=== PATIENT | female | born 1990 | race Caucasian/White ===

== ENCOUNTER 2023-03-09 08:35 | Emergency (ER) | payer MEDICARE, MEDICAID ==
[~2023-03-09] VITALS: Ht 165.1 cm; Wt 70.9 kg
[2023-03-09 08:45] VITALS: BP 125/78
[2023-03-09] MEDS ORDERED: HYDROcodone/acetaminophen 5mg/325mg tablet PO ONE (12:00)
--- NOTE | 2023-03-09 13:53 | NUR ---
TELERAD CALLED REGARDING XRAY REPORT.
[2023-03-09] MEDS ORDERED: HYDR-3965 PO ×2 (14:35→14:37)
== END 2023-03-09 14:53 | disposition home or self-care (01) ==
LOC: ER 08:36
DX: R07.89 Other chest pain (principal); W19.XXXA Unspecified fall, initial encounter; Y93.89 Activity, other specified; Y92.89 Other specified places as the place of occurrence of the external cause
CPT/HCPCS: 71101; 99283

== ENCOUNTER 2023-04-10 14:19 | Emergency (ER) | payer MEDICARE, MEDICAID ==
[~2023-04-10] VITALS: Ht 165.1 cm; Wt 73.6 kg
[~2023-04-10 14:19] MED LIST: HYDR-3965 PO
[2023-04-10 14:56] LABS: BASOPHILS # (AUTO) 0.1 X10'3 (0-0.2); BASOPHILS % (AUTO) 0.7 % (0-1); EOSINOPHILS # (AUTO) 0.2 X10'3 (0-0.9); HEMATOCRIT 35.8 % (35.0-45.0); HEMOGLOBIN 12.1 g/dl (12.0-16.0); LYMPHOCYTES # (AUTO) 2.7 X10'3 (1.1-4.8); LYMPHOCYTES % (AUTO) 27.9 % (21-51); MEAN CORPUSCULAR HEMOGLOBIN 33.7 PG (27.0-31.0); MEAN CORPUSCULAR HGB CONC 33.8 g/dL (33.0-36.5); MEAN CORPUSCULAR VOLUME 99.7 FL (78-98); MEAN PLATELET VOLUME 7.8 FL (7.4-10.4); MONOCYTES # (AUTO) 0.9 X10'3 (0-0.9); MONOCYTES % (AUTO) 9.5 % (2-12); NEUTROPHILS # (AUTO) 5.9 X10'3 (1.8-7.7); NEUTROPHILS % (AUTO) 59.9 % (42-75); PLATELET COUNT 351 X10'3 (140-440); RED BLOOD COUNT 3.59 X10'6 (4.20-5.60); RED CELL DISTRIBUTION WIDTH 13.1 % (11.5-14.5); WHITE BLOOD COUNT 9.8 X10'3 (4.5-11.0)
[2023-04-10 15:26] LABS: ALANINE AMINOTRANSFERASE 24 U/L (12-78); ALBUMIN/GLOBULIN RATIO 1.1 (1.1-1.5); ALKALINE PHOSPHATASE 63 IU/L (46-116); ANION GAP 9 (8-16); ASPARTATE AMINO TRANSFERASE 17 U/L (10-37); BILIRUBIN,TOTAL 0.6 MG/DL (0.1-1.0); BLOOD UREA NITROGEN 9 MG/DL (7-18); BUN/CREATININE RATIO 10.5 (10.0-20.0); CALCIUM 9.2 MG/DL (8.5-10.1); CHLORIDE 107 MMOL/L (99-107); CREATININE 0.86 MG/DL (0.40-0.90); GLUCOSE 80 MG/DL (70-104); POTASSIUM 3.4 MMOL/L (3.5-5.1); SODIUM 143 MMOL/L (135-145); TOTAL CARBON DIOXIDE 27.4 MMOL/L (24-32); TOTAL PROTEIN 7.8 G/DL (6.4-8.2); eGFR 76 ML/MIN
[2023-04-10 16:52] LABS: CLARITY,URINE CLEAR (Clear); COLOR,URINE YELLOW (Yellow); GLUCOSE, URINE NEGATIVE (Neg); KETONES,URINE NEGATIVE (Neg); LEUKOCYTE ESTERASE ,URINE NEGATIVE (Neg); NITRITES, URINE NEGATIVE (Neg); OCCULT BLOOD,URINE NEGATIVE (Neg); PH,URINE 6.5 (4.8-8.0); PROTEIN,URINE TRACE mg/dl (Neg); UROBILINOGEN,URINE 0.2 E.U/dL (0.2-1.0)
[2023-04-10 16:53] LABS: UA COLLECTION TYPE VOIDED
[2023-04-10 17:02] LABS: BACTERIA,URINE 1+ /HPF (Neg); RBC,URINE NONE SEEN /HPF (0-2)
[2023-04-10 17:03] LABS: CAL OXALATE CRYSTALS 2+ /HPF (NEGATIVE); MUCUS STRANDS MODERATE /LPF (Neg); SQUAMOUS EPITHELIAL CELL,UR MODERATE /LPF (FEW)
[2023-04-10 17:08] LABS: URINE AMPHETAMINE SCREEN NEGATIVE (Neg); URINE BARBITUATE SCREEN NEGATIVE (Neg); URINE BENZODIAZEPINES SCREEN NEGATIVE (Neg); URINE CANNABINOID SCREEN POSITIVE (Neg); URINE COCAINE SCREEN NEGATIVE (Neg); URINE METHADONE SCREEN NEGATIVE (Neg); URINE OPIATE SCREEN NEGATIVE (Neg); URINE PHENCYCLIDINE SCREEN NEGATIVE (Neg)
--- NOTE | 2023-04-10 18:33 | NUR ---
PT BELONGINGS PUT IN LOCKER 23 IN OVERFLOW.
--- NOTE | 2023-04-11 01:36 | NUR ---
PT REQUESTED A SNACK SNACK PROVIDED
--- NOTE | 2023-04-11 01:48 | NUR ---
PT UP AND PACING AROUND THE ROOM
--- NOTE | 2023-04-11 07:58 | NUR ---
MENTAL HEALTH PACKET FAXED TO [facility] @ [id number].
--- NOTE | 2023-04-11 09:41 | NUR ---
Received report, patient observed walking in room. Greeted hello, she is pleasant but converation is very disorganized. AOx2-3.
[2023-04-11] MEDS: LORazepam 1 MG tablet PO PRN ×2 (11:20→20:47)
--- NOTE | 2023-04-11 11:20 | NUR ---
Patient wandering ER, observed back and forth from bathroom very frequently, several times within the hour. Noted pacing in her room and in the marquez. Received verbal order for PRN ativan, carried out with administration. Snacks and coffee provided to patient
--- NOTE | 2023-04-11 11:34 | NUR ---
SPOKE WITH [facility], THEY HAVE REC'D PATIENT PACKET AND IS PENDING EVAL
--- NOTE | 2023-04-11 11:50 | NUR ---
Patient sitting in bed requesting lunch, 2 visitors at bed side. Patient appears to be enjoying visit
--- NOTE | 2023-04-11 12:39 | NUR ---
Patient's visitors left (dad and brother). Patient noted laying in bed.
--- NOTE | 2023-04-11 13:27 | NUR ---
Patient up for BRP
--- NOTE | 2023-04-11 14:12 | NUR ---
5150 WRITTEN, NO SAFETY PLAN FOR DISCHARGE
--- NOTE | 2023-04-11 15:18 | NUR ---
Patient up for BRP, noted pacing in room and the marquez to restroom
--- NOTE | 2023-04-11 15:25 | NUR ---
Patient transferred to overflow bed 20
[2023-04-11] MEDS ORDERED: potassium chloride 10mEq ER tablet PO ONE (16:35)
--- NOTE | 2023-04-11 16:38 | NUR ---
Spoke to Malini at [facility], nurse to nurse provided. She requested that we perform a test and replace her potassium. Received verbal orders for both. Will carry out. Malini requested that results be faxed to Addendum: 04/11/23 at 1642 by ROMAINE Received call from Sneha at [facility], she stated that patient has been accepted to [facility] and transportation will be arranged for tommorrow morning, she reports that they will call with a time for picket [employer] in the morning.
[2023-04-11 16:42] LABS: URINE HCG NEGATIVE (NEG)
--- NOTE | 2023-04-11 16:43 | NUR ---
Patient sitting up in bed at this time, she is pleasant and cooperative. Able to make needs known
--- NOTE | 2023-04-11 17:13 | NUR ---
Patient up for BRP, snack provided
--- NOTE | 2023-04-11 18:12 | NUR ---
Patient sitting up eating dinner at this time
--- NOTE | 2023-04-11 18:30 | NUR ---
Patient received sitting in her room eating dinner at change of shift. No s/s of distress. Will continue to monitor.
--- NOTE | 2023-04-11 19:00 | NUR ---
Pt was receptive to 1:1 assessment. She is alert and oriented x2 to person and place. Pt endorsed that the current date is "August of 2014" and does not recall why she was brought to the hospital. Pt stated that she "must of had a weird seizure and was sleep walking". She is noted having delusions of "her friends being outside". Pt endorsed that she is "ready to go home" where she reports that she lives with friends. Pt denies SI/HI, AH and VH. She requested a Nicotine patch which was provided to her per MD order. She is noted walking around the nurses station at this time.
[2023-04-11] MEDS ORDERED: nicotine 14mg patch - 24hr TD ONE (19:05)
--- NOTE | 2023-04-11 20:04 | NUR ---
Pt awoke from her room and walked to the restroom with a steady gait. She retreated back to her bed and asked for a cup of hot tea. No changes noted at this time.
--- NOTE | 2023-04-11 20:49 | NUR ---
Patient endorsed anxiety and inability to sleep. She was provided with PRN Ativan PO per MD order. Pt given a television to watch in her room until she is able to sleep. No changes or s/s of distress noted.
--- NOTE | 2023-04-11 22:37 | NUR ---
Pt is observed sleeping in her bed with no s/s of distress. Respirations even, unlabored. Will continue to monitor.
--- NOTE | 2023-04-11 23:56 | NUR ---
The patient appears to be sleeping
--- NOTE | 2023-04-12 01:57 | NUR ---
PT showered at this time
--- NOTE | 2023-04-12 03:20 | NUR ---
Pt appears to be sleeping, right side lying, eyes closed, breathing even and unlabored, no distress.
--- NOTE | 2023-04-12 05:05 | NUR ---
Pt up for BRP. Pt returns back to bed independently. No distress.
--- NOTE | 2023-04-12 07:00 | NUR ---
Patient resting comfortably, rr even and unlabored.
--- NOTE | 2023-04-12 07:55 | NUR ---
DISCHARGE NOTE: Pt was picked up at 0755 and transported to [facility]. Pt left with personal belongings (clothes.) Pt was given a snack bag with water. Pt was cooperative. Pt showered last night and given clean clothes.
[2023-04-12] MEDS ORDERED: nicotine 14mg patch - 24hr TD SCH (08:00)
[2023-04-12 10:31] VITALS: BP 105/73
== END 2023-04-12 07:55 ==
LOC: ER 14:19
DX: R45.851 Suicidal ideations (principal); Z20.822 Contact with and (suspected) exposure to COVID-19; Z88.6 Allergy status to analgesic agent; Z88.5 Allergy status to narcotic agent
CPT/HCPCS: 36415; 80053; 80305; 81001; 81025; 85025; 87811; 99285; C2617

== ENCOUNTER 2023-05-11 15:26 | Emergency (ER) | payer MEDICARE, MEDICAID ==
[~2023-05-11] VITALS: Ht 165.1 cm; Wt 78.6 kg
[2023-05-11 15:30] VITALS: BP 116/66; PULSE 82; RESP 18; TEMP 99.5; O2SAT 98
[2023-05-11] MEDS ORDERED: QUET50TA15 PO (17:08)
[2023-05-11] MEDS ORDERED: HYDR200T73 PO (17:08)
[2023-05-11] MEDS ORDERED: GABA100C PO (17:08)
== END 2023-05-11 17:44 | disposition home or self-care (01) ==
LOC: ER 15:26
DX: F31.9 Bipolar disorder, unspecified (principal); Z76.0 Encounter for issue of repeat prescription; Z88.6 Allergy status to analgesic agent; Z79.899 Other long term (current) drug therapy
CPT/HCPCS: 99281

== ENCOUNTER 2023-05-13 12:23 | Emergency (ER) | payer MEDICARE, MEDICAID ==
[~2023-05-13] VITALS: Ht 165.1 cm; Wt 74.4 kg
[~2023-05-13 12:23] MED LIST changes: +GABA100C PO; -HYDR-3965 PO; +HYDR200T73 PO; +QUET50TA15 PO
[2023-05-13 13:05] VITALS: BP 109/67; PULSE 86; RESP 16; TEMP 98.4; O2SAT 96
[2023-05-13] MEDS ORDERED: PENI500T2 PO (13:46)
[2023-05-13] MEDS ORDERED: LIDO20SO16 PO (13:46)
== END 2023-05-13 13:58 | disposition home or self-care (01) ==
LOC: ER 12:24
DX: J02.0 Streptococcal pharyngitis (principal); Z88.8 Allergy status to other drugs, medicaments and biological substances; Z79.2 Long term (current) use of antibiotics; Z79.899 Other long term (current) drug therapy
CPT/HCPCS: 99283

== ENCOUNTER 2023-05-27 11:24 | Emergency (ER) | payer MEDICARE, MEDICAID ==
[~2023-05-27] VITALS: Ht 165.1 cm; Wt 78.4 kg
[~2023-05-27 11:24] MED LIST changes: +LIDO20SO16 PO
[2023-05-27 11:39] VITALS: BP 108/74; PULSE 76; RESP 16; TEMP 98.4; O2SAT 97
[2023-05-27] MEDS ORDERED: QUET200T5 PO (14:27)
[2023-05-27] MEDS ORDERED: HYDR50TA65 PO (14:27)
== END 2023-05-27 14:34 | disposition home or self-care (01) ==
LOC: ER 11:25
DX: F41.9 Anxiety disorder, unspecified (principal); R19.7 Diarrhea, unspecified; F17.200 Nicotine dependence, unspecified, uncomplicated; Z88.6 Allergy status to analgesic agent; Z79.899 Other long term (current) drug therapy
CPT/HCPCS: 99283

== ENCOUNTER 2023-05-30 14:26 | Emergency (ER) | payer MEDICARE, MEDICAID ==
[~2023-05-30 14:26] MED LIST changes: +HYDR50TA65 PO; +QUET200T5 PO
== END 2023-05-30 15:17 | disposition left against medical advice (07) ==
LOC: ER 14:26
DX: F41.9 Anxiety disorder, unspecified (principal); Z53.21 Procedure and treatment not carried out due to patient leaving prior to being seen by health care provider

== ENCOUNTER 2023-06-09 08:29 | Emergency (ER) | payer MEDICARE, MEDICAID ==
[~2023-06-09] VITALS: Ht 165.1 cm; Wt 72.7 kg
[~2023-06-09 08:29] MED LIST changes: +LORA-269 PO
[2023-06-09 08:49] VITALS: BP 111/68; PULSE 77; RESP 18; TEMP 98.1; O2SAT 98
[2023-06-09] MEDS ORDERED: LORazepam 1 MG tablet PO ONE (10:00)
[2023-06-09] MEDS ORDERED: HYDR25CA PO (10:02)
[2023-06-10] MEDS ORDERED: HYDR50TA65 PO (13:08)
== END 2023-06-09 10:41 | disposition home or self-care (01) ==
LOC: ER 08:29
DX: F41.9 Anxiety disorder, unspecified (principal); Z88.6 Allergy status to analgesic agent; Z88.8 Allergy status to other drugs, medicaments and biological substances; Z79.899 Other long term (current) drug therapy
CPT/HCPCS: 99283

== ENCOUNTER 2023-06-10 10:51 | Emergency (ER) | payer MEDICARE, MEDICAID ==
[~2023-06-10] VITALS: Ht 165.1 cm; Wt 77.4 kg
[~2023-06-10 10:51] MED LIST changes: +HYDR25CA PO
[2023-06-10 10:52] VITALS: BP 115/73; PULSE 90; RESP 16; TEMP 98.4; O2SAT 99
--- NOTE | 2023-06-10 11:22 | NUR ---
PT PRESENTS TO THE ER FOR SEVERAL PANIC ATTACKS IN THE MIDDLE OF THE NIGHT. PT REPOTRS MEDICATION PRESCRIBED IS NOT WORKING.
[2023-06-10] MEDS ORDERED: LORazepam 1 MG tablet PO ONE (13:05)
[2023-06-10] MEDS ORDERED: HYDR50TA65 PO (13:08)
== END 2023-06-10 13:21 | disposition home or self-care (01) ==
LOC: ER 10:51
DX: F41.9 Anxiety disorder, unspecified (principal); Z88.6 Allergy status to analgesic agent; Z88.8 Allergy status to other drugs, medicaments and biological substances; Z79.899 Other long term (current) drug therapy
CPT/HCPCS: 99283

== ENCOUNTER 2023-06-21 10:55 | Emergency (ER) | payer MEDICARE, MEDICAID ==
[~2023-06-21] VITALS: Ht 165.1 cm; Wt 81.6 kg
[~2023-06-21 10:55] MED LIST changes: -HYDR200T73 PO
[2023-06-21 15:15] VITALS: BP 103/68; PULSE 87; RESP 20; TEMP 96.7; O2SAT 99
[2023-06-21] MEDS ORDERED: HYDR50CA5 PO (17:08)
== END 2023-06-21 17:59 | disposition home or self-care (01) ==
LOC: ER 10:55
DX: F41.9 Anxiety disorder, unspecified (principal); Z88.5 Allergy status to narcotic agent; Z88.8 Allergy status to other drugs, medicaments and biological substances; Z79.899 Other long term (current) drug therapy; Z76.0 Encounter for issue of repeat prescription
CPT/HCPCS: 99281; 99283

== ENCOUNTER 2023-06-28 11:49 | Emergency (ER) | payer MEDICARE, MEDICAID ==
[~2023-06-28] VITALS: Ht 165.1 cm; Wt 80.0 kg
[~2023-06-28 11:49] MED LIST changes: +HYDR50CA5 PO
[2023-06-28 11:50] VITALS: TEMP 97
[2023-06-28 14:30] VITALS: BP 111/71; PULSE 93; RESP 18; O2SAT 97
[2023-06-28] MEDS ORDERED: ALPRAZolam 0.5mg tablet PO ONE (16:15)
[2023-06-28] MEDS ORDERED: ALPR-624 PO (16:28)
== END 2023-06-28 16:41 | disposition home or self-care (01) ==
LOC: ER 11:50
DX: F41.9 Anxiety disorder, unspecified (principal); Z88.6 Allergy status to analgesic agent; Z79.899 Other long term (current) drug therapy
CPT/HCPCS: 99283

== ENCOUNTER 2024-10-26 14:14 | Emergency (ER) | payer MEDICARE, MEDICAID ==
[~2024-10-26] VITALS: Ht 165.1 cm; Wt 85.9 kg
[~2024-10-26 14:14] MED LIST changes: +ATOR20TA66 PO; +BACL10TA2 PO; +FLUO-167 PO; +GABA-1405 PO; -GABA100C PO; -HYDR25CA PO; -HYDR50CA5 PO; -HYDR50TA65 PO; -LIDO20SO16 PO; -LORA-269 PO; +OLAN5TAB75 PO; +QUET-1 PO; -QUET200T5 PO; -QUET50TA15 PO
[2024-10-26 14:30] VITALS: TEMP 98.6
[2024-10-26] MEDS: hydrOXYzine 25 MG tablet PO ONE (15:53)
[2024-10-26] MEDS ORDERED: TAM75C PO (16:57)
[2024-10-26] MEDS ORDERED: ACET650T2 PO (16:57)
[2024-10-26] MEDS ORDERED: HYDR-3686 PO (16:59)
[2024-10-26] MEDS: acetaminophen 325mg tablet PO ONE (17:03)
[2024-10-26] MEDS: oseltamivir phos 75mg capsule PO ONE (17:15)
[2024-10-26 18:14] VITALS: BP 116/72; PULSE 90; RESP 16; O2SAT 99
== END 2024-10-26 18:19 | disposition home or self-care (01) ==
LOC: ER 14:14
DX: J10.1 Influenza due to other identified influenza virus with other respiratory manifestations (principal); F41.9 Anxiety disorder, unspecified; Z88.6 Allergy status to analgesic agent; Z20.822 Contact with and (suspected) exposure to COVID-19; Z79.82 Long term (current) use of aspirin
CPT/HCPCS: 36415; 87502; 87503; 87811; 99284; Q0177

== ENCOUNTER 2024-11-10 15:16 | Emergency (ER) | payer MEDICARE, MEDICAID ==
[~2024-11-10] VITALS: Ht 165.1 cm; Wt 81.8 kg
[~2024-11-10 15:16] MED LIST changes: +ACET650T2 PO; +HYDR-3686 PO
[2024-11-10 15:18] VITALS: TEMP 98.6
[2024-11-10] MEDS ORDERED: CLOT10TR PO (16:03)
[2024-11-10] MEDS: clotrimazole 10mg troche MM ONE (16:26)
[2024-11-10 17:06] VITALS: BP 124/60; PULSE 78; RESP 16; O2SAT 96
== END 2024-11-10 17:04 | disposition home or self-care (01) ==
LOC: ER 15:16
DX: B37.0 Candidal stomatitis (principal); B37.81 Candidal esophagitis; F41.9 Anxiety disorder, unspecified; Z88.6 Allergy status to analgesic agent; Z79.82 Long term (current) use of aspirin
CPT/HCPCS: 99282; 99283

== ENCOUNTER 2024-11-13 18:38 | Inpatient (IN) | payer MEDICARE, MEDICAID ==
[~2024-11-13] VITALS: Ht 165.1 cm; Wt 91.0 kg
[~2024-11-13 18:38] MED LIST changes: +CLOT10TR PO
[2024-11-13 23:02] LABS: BASOPHILS # (AUTO) 0.1 X10'3 (0-0.2); BASOPHILS % (AUTO) 0.5 % (0-1); EOSINOPHILS # (AUTO) 0.4 X10'3 (0-0.9); EOSINOPHILS % (AUTO) 2.9 % (0-6); HEMATOCRIT 30.7 % (35.0-45.0); HEMOGLOBIN 10.8 g/dl (12.0-16.0); LYMPHOCYTES # (AUTO) 2.6 X10'3 (1.1-4.8); LYMPHOCYTES % (AUTO) 17.8 % (21-51); MEAN CORPUSCULAR HEMOGLOBIN 33.7 PG (27.0-31.0); MEAN CORPUSCULAR VOLUME 96.5 FL (78-98); MEAN PLATELET VOLUME 6.7 FL (7.4-10.4); MONOCYTES # (AUTO) 0.8 X10'3 (0-0.9); MONOCYTES % (AUTO) 5.2 % (2-12); NEUTROPHILS # (AUTO) 10.8 X10'3 (1.8-7.7); NEUTROPHILS % (AUTO) 73.6 % (42-75); PLATELET COUNT 485 X10'3 (140-440); RED BLOOD COUNT 3.19 X10'6 (4.20-5.60); WHITE BLOOD COUNT 14.7 X10'3 (4.5-11.0)
[2024-11-13 23:23] LABS: ALBUMIN 3.2 G/DL (3.4-5.0); ANION GAP 8 (8-16); BLOOD UREA NITROGEN 7 MG/DL (7-18); BUN/CREATININE RATIO 12.7 (10.0-20.0); CALCIUM 8.7 MG/DL (8.5-10.1); CHLORIDE 104 MMOL/L (99-107); CREATININE 0.55 MG/DL (0.40-0.90); GLUCOSE 143 MG/DL (70-104); POTASSIUM 3.5 MMOL/L (3.5-5.1); SODIUM 140 MMOL/L (135-145); THYROID STIMULATING HORMONE 0.58 ulU/ml (0.34-4.50); eCRCL 128 ML/MIN; eGFR > 90 ML/MIN
[2024-11-13 23:50] LABS: BILIRUBIN,URINE NEGATIVE (Neg); CLARITY,URINE CLEAR (Clear); COLOR,URINE YELLOW (Yellow); GLUCOSE, URINE NEGATIVE (Neg); KETONES,URINE NEGATIVE (Neg); LEUKOCYTE ESTERASE ,URINE NEGATIVE (Neg); NITRITES, URINE NEGATIVE (Neg); OCCULT BLOOD,URINE MODERATE (Neg); PROTEIN,URINE NEGATIVE (Neg)
[2024-11-13 23:50] LABS: ETHANOL < 10 MG/DL (<10)
[2024-11-13 23:52] LABS: UA COLLECTION TYPE CLN CATCH MIDSTREAM
[2024-11-13 23:53] LABS: BACTERIA,URINE 1+ /HPF (Neg); SQUAMOUS EPITHELIAL CELL,UR MANY /LPF (FEW)
[2024-11-13 23:54] LABS: URINE HCG NEGATIVE (NEG); WBC,URINE 0-4 /HPF (0-4)
[2024-11-14 00:05] LABS: URINE AMPHETAMINE SCREEN NEGATIVE (Neg); URINE BARBITUATE SCREEN NEGATIVE (Neg); URINE BENZODIAZEPINES SCREEN NEGATIVE (Neg); URINE CANNABINOID SCREEN NEGATIVE (Neg); URINE COCAINE SCREEN NEGATIVE (Neg); URINE METHADONE SCREEN NEGATIVE (Neg); URINE OPIATE SCREEN NEGATIVE (Neg); URINE PHENCYCLIDINE SCREEN NEGATIVE (Neg)
[2024-11-14] MEDS ORDERED: HYDR50CA5 PO (00:09)
[2024-11-14] MEDS ORDERED: FLUO20CA39 PO (00:29)
[2024-11-14] MEDS ORDERED: ACET-2778 PO (00:29)
[2024-11-14] MEDS ORDERED: BACL10TA2 PO (00:29)
[2024-11-14] MEDS ORDERED: ACET-1939 PO (00:29)
[2024-11-14] MEDS: HYDROXYZINE PAMOATE 50 MG PO SCH (04:00)
[2024-11-14] MEDS: FLUoxetine 20mg capsule PO SCH (08:06)
[2024-11-14] MEDS: gabapentin 300mg capsule PO SCH ×2 (08:07→19:27)
[2024-11-14] MEDS: HYDROXYZINE PAMOATE 50 MG PO PRN (09:07)
[2024-11-14] MEDS: nicotine 14mg patch - 24hr TD ONE (14:23)
[2024-11-14] MEDS: hydrOXYzine 25 MG tablet PO PRN (19:26)
[2024-11-14] MEDS: butalbital 50MG/acetaminophen 300MG/caffeine 40MG (Fioricet) CAPSULE PO ONE (19:26)
[2024-11-14] MEDS: OLANZapine 2.5MG tablet PO ONE (19:54)
[2024-11-15] MEDS: LORazepam 1 MG tablet PO ONE (15:34)
[2024-11-15 15:44] VITALS: BP 114/75; PULSE 87; RESP 20; TEMP 97; O2SAT 98
[2024-11-15] MEDS ORDERED: magnesium hydroxide 30ml (MOM) UD suspension PO PRN (15:55)
[2024-11-15] MEDS ORDERED: loperamide 2mg capsule PO PRN (15:55)
[2024-11-15] MEDS ORDERED: mag hydrox/Alum hydrox/simeth 30ml oral suspension PO PRN (15:55)
[2024-11-15] MEDS ORDERED: FLUO40CA PO (16:54)
[2024-11-15] MEDS ORDERED: ATOR40TA72 PO (16:54)
[2024-11-15] MEDS ORDERED: OLAN5TAB3 PO (16:55)
[2024-11-15] MEDS: NICOTINE POLACRILEX 2 MG LOZENGE BC PRN (16:58)
[2024-11-15 17:19] VITALS: RESP 16; O2SAT 97
[2024-11-15] MEDS: acetaminophen 325mg tablet PO PRN (17:38)
[2024-11-15 19:00] VITALS: RESP 16; O2SAT 98
[2024-11-15] MEDS: baclofen 10mg tablet PO SCH (20:00)
[2024-11-15] MEDS: quetiapine 100mg tablet PO SCH (21:00)
[2024-11-16 06:45] LABS: BASOPHILS # (AUTO) 0.1 X10'3 (0-0.2); BASOPHILS % (AUTO) 0.7 % (0-1); EOSINOPHILS # (AUTO) 0.3 X10'3 (0-0.9); EOSINOPHILS % (AUTO) 4.4 % (0-6); HEMATOCRIT 34.8 % (35.0-45.0); HEMOGLOBIN 12.1 g/dl (12.0-16.0); LYMPHOCYTES # (AUTO) 2.1 X10'3 (1.1-4.8); LYMPHOCYTES % (AUTO) 28.2 % (21-51); MEAN CORPUSCULAR HEMOGLOBIN 33.6 PG (27.0-31.0); MEAN CORPUSCULAR HGB CONC 34.9 g/dL (33.0-36.5); MEAN CORPUSCULAR VOLUME 96.2 FL (78-98); MEAN PLATELET VOLUME 6.4 FL (7.4-10.4); MONOCYTES # (AUTO) 0.7 X10'3 (0-0.9); MONOCYTES % (AUTO) 9.3 % (2-12); NEUTROPHILS # (AUTO) 4.3 X10'3 (1.8-7.7); NEUTROPHILS % (AUTO) 57.4 % (42-75); PLATELET COUNT 565 X10'3 (140-440); RED BLOOD COUNT 3.61 X10'6 (4.20-5.60); RED CELL DISTRIBUTION WIDTH 13.9 % (11.5-14.5); WHITE BLOOD COUNT 7.4 X10'3 (4.5-11.0)
[2024-11-16 06:59] LABS: ALANINE AMINOTRANSFERASE 92 U/L (12-78); ALBUMIN 3.3 G/DL (3.4-5.0); ALBUMIN/GLOBULIN RATIO 0.6 (1.1-1.5); ALKALINE PHOSPHATASE 138 IU/L (46-116); ANION GAP 9 (8-16); ASPARTATE AMINO TRANSFERASE 30 U/L (10-37); BILIRUBIN,TOTAL 0.3 MG/DL (0.1-1.0); BLOOD UREA NITROGEN 18 MG/DL (7-18); BUN/CREATININE RATIO 26.9 (10.0-20.0); CALCIUM 9.3 MG/DL (8.5-10.1); CHLORIDE 100 MMOL/L (99-107); CHOL/HDL RATIO 3.2 (0.00-4.99); CHOLESTEROL 174 MG/DL (0-200); CREATININE 0.67 MG/DL (0.40-0.90); GLUCOSE 95 MG/DL (70-104); HDL CHOLESTEROL 54 MG/DL (35-60); LDL CHOLESTEROL 102 MG/DL (50-100); POTASSIUM 4.1 MMOL/L (3.5-5.1); SODIUM 134 MMOL/L (135-145); TOTAL CARBON DIOXIDE 24.9 MMOL/L (24-32); TOTAL PROTEIN 8.7 G/DL (6.4-8.2); TRIGLYCERIDES 79 MG/DL (20-135); eCRCL 105 ML/MIN; eGFR > 90 ML/MIN
[2024-11-16] MEDS: atorvastatin 20mg tablet PO SCH (07:21)
[2024-11-16] MEDS: FLUoxetine 20mg capsule PO SCH (07:21)
[2024-11-16] MEDS: OLANZAPINE 5 MG TABLET PO SCH ×2 (07:22→21:28)
[2024-11-16] MEDS: nicotine 21mg patch - 24 hr TD SCH (07:25)
[2024-11-16 07:26] VITALS: RESP 16
[2024-11-16 07:31] VITALS: BP 91/54; PULSE 81; RESP 14; TEMP 98.2; O2SAT 96
[2024-11-16 07:40] VITALS: BP 109/80; PULSE 97
[2024-11-16 19:00] VITALS: RESP 16; O2SAT 99
[2024-11-16 19:41] VITALS: BP 104/64; PULSE 73; RESP 16; TEMP 97.7; O2SAT 99
[2024-11-17 07:00] VITALS: RESP 14; O2SAT 100
[2024-11-17 07:45] VITALS: BP 102/54; PULSE 56; RESP 14; TEMP 98.7; O2SAT 100
[2024-11-17 08:01] LABS: ALANINE AMINOTRANSFERASE 75 U/L (12-78); ALBUMIN 3.5 G/DL (3.4-5.0); ALBUMIN/GLOBULIN RATIO 0.6 (1.1-1.5); ALKALINE PHOSPHATASE 139 IU/L (46-116); ASPARTATE AMINO TRANSFERASE 22 U/L (10-37); BILIRUBIN,DIRECT 0.1 MG/DL (0-0.3); BILIRUBIN,TOTAL 0.4 MG/DL (0.1-1.0)
[2024-11-17] MEDS: LORazepam 0.5 MG tablet PO PRN (15:46)
[2024-11-17] MEDS: ketorolac trometh 30MG/ML vial 30 MG/ML VIAL IM ONE (15:49)
[2024-11-17 19:00] VITALS: RESP 74; O2SAT 99
[2024-11-17 20:00] VITALS: BP 90/53; PULSE 74; RESP 18; TEMP 97.8
[2024-11-17] MEDS: OLANZAPINE 5 MG TABLET PO SCH (21:01)
[2024-11-18 07:00] VITALS: BP 106/72; PULSE 70; RESP 16; TEMP 98.8; O2SAT 98
[2024-11-18 19:00] VITALS: RESP 16; O2SAT 99
[2024-11-18 20:00] VITALS: BP 115/66; PULSE 74; RESP 16; TEMP 98.4
[2024-11-19 05:12] LABS: HBSAG SCREEN Negative (Negative); HEP B CORE AB, IGM Negative (Negative); HEP B CORE AB, TOT Negative (Negative); HEP B SURF AB Reactive (.); HEPATITIS C VIRUS ANTIBODY Non Reactive (Non Reactive)
[2024-11-19 07:00] VITALS: BP 113/74; PULSE 76; RESP 16; RESP 19; TEMP 98.2; O2SAT 97
[2024-11-19] MEDS: diphenhydrAMINE 25mg capsule PO ONE (14:52)
[2024-11-19] MEDS: LORazepam 1 MG tablet PO ONE (14:52)
[2024-11-19 19:00] VITALS: RESP 14; O2SAT 100
[2024-11-19 19:15] VITALS: BP 92/45; PULSE 77; RESP 14; TEMP 97.9; O2SAT 100
[2024-11-19] MEDS: LORazepam 0.5 MG tablet PO SCH (20:56)
[2024-11-20 08:00] VITALS: BP 128/72; PULSE 84; RESP 16; TEMP 98; O2SAT 99
[2024-11-20] MEDS: acetaminophen 325mg tablet PO PRN (10:41)
[2024-11-20] MEDS ORDERED: gabapentin 300mg capsule PO SCH (13:20)
[2024-11-20] MEDS: risperiDONE 2mg tablet PO SCH (13:41)
[2024-11-20] MEDS: gabapentin 400mg capsule PO ONE (13:41)
[2024-11-20 19:45] VITALS: RESP 18; O2SAT 98
[2024-11-20 19:55] VITALS: BP 109/67; PULSE 73; RESP 18; TEMP 98.6; O2SAT 98
[2024-11-20] MEDS: gabapentin 400mg capsule PO SCH (20:16)
[2024-11-21 07:30] VITALS: BP 163/88; PULSE 72; RESP 16; TEMP 98; O2SAT 99
[2024-11-21 08:00] VITALS: RESP 16; O2SAT 99
[2024-11-21] MEDS: diphenhydrAMINE 25mg capsule PO ONE (16:31)
[2024-11-21 18:43] VITALS: RESP 18
[2024-11-21 19:16] VITALS: BP 104/61; PULSE 72; RESP 16; TEMP 97.9; O2SAT 98
[2024-11-21] MEDS: cetirizine 10mg tablet PO SCH (19:39)
[2024-11-21 20:44] VITALS: RESP 18
[2024-11-21] MEDS: hydrOXYzine 25 MG tablet PO ONE (21:35)
[2024-11-21] MEDS: quetiapine 100mg tablet PO PRN (21:37)
[2024-11-22 08:00] VITALS: BP 114/69; PULSE 90; RESP 16; TEMP 98.5; O2SAT 98
[2024-11-22 09:17] LABS: CHOL/HDL RATIO 2.8 (0.00-4.99); CHOLESTEROL 153 MG/DL (0-200); HDL CHOLESTEROL 55 MG/DL (35-60); LDL CHOLESTEROL 82 MG/DL (50-100); TRIGLYCERIDES 65 MG/DL (20-135)
[2024-11-22] MEDS ORDERED: HYDR50CA5 PO (11:13)
[2024-11-22] MEDS ORDERED: QUET200T31 PO (11:13)
[2024-11-22] MEDS ORDERED: CETI10TA14 PO (11:13)
[2024-11-22] MEDS ORDERED: RISP-32 PO (11:13)
[2024-11-22] MEDS ORDERED: GABA-1555 PO (11:13)
[2024-11-22] MEDS ORDERED: FLUO40CA PO (11:13)
[2024-11-22] MEDS ORDERED: ATOR40TA72 PO (11:13)
[2024-11-22] MEDS ORDERED: BAC10T PO (11:13)
[2024-11-22 18:25] VITALS: RESP 18
[2024-11-22 18:58] VITALS: BP 133/80; PULSE 89; RESP 20; TEMP 98.6; O2SAT 98
[2024-11-22 19:02] VITALS: BP 133/80; PULSE 89; RESP 20; TEMP 98.6; O2SAT 98
[2024-11-23 07:45] VITALS: RESP 12; O2SAT 98
[2024-11-23 08:56] VITALS: BP 105/66; PULSE 78; RESP 12; TEMP 97.8; O2SAT 98
[2024-11-23 19:00] VITALS: RESP 18; O2SAT 98
[2024-11-23 19:29] VITALS: BP 114/72; PULSE 94; RESP 18; TEMP 98.8; O2SAT 98
[2024-11-23 20:00] VITALS: PULSE 80
[2024-11-23] MEDS: risperiDONE 2mg tablet PO SCH (20:25)
[2024-11-24 07:00] VITALS: RESP 12; O2SAT 98
[2024-11-24 07:33] VITALS: BP 117/74; PULSE 87; RESP 18; TEMP 97.7; O2SAT 99
[2024-11-24 19:00] VITALS: RESP 16; O2SAT 100
[2024-11-24 20:00] VITALS: BP 108/69; PULSE 88; RESP 16; TEMP 98.9; O2SAT 100
[2024-11-25 07:00] VITALS: BP 119/73; PULSE 88; RESP 16; TEMP 97.8; O2SAT 97
[2024-11-25 19:00] VITALS: RESP 18; O2SAT 99
[2024-11-25 20:00] VITALS: BP 113/65; PULSE 85; RESP 18; TEMP 98.8; O2SAT 99
[2024-11-26 07:00] VITALS: RESP 16; O2SAT 99
[2024-11-26 08:00] VITALS: BP 121/74; PULSE 80; RESP 16; TEMP 98.6; O2SAT 99
== END 2024-11-26 09:50 | disposition home or self-care (01) | DRG 885 ==
LOC: ER 18:39 → ADULT MH 11-14 19:25 → UNDOADMIN 11-14 19:25 → ED HOLD 11-14 19:25 → ADULT MH 11-15 15:49
PROVIDERS: ADMIT Psychiatry & Neurology Psychiatry; ATTEND Psychiatry & Neurology Psychiatry
DX: F23 Brief psychotic disorder (principal); R45.851 Suicidal ideations; E78.00 Pure hypercholesterolemia, unspecified; Z20.822 Contact with and (suspected) exposure to COVID-19; F41.9 Anxiety disorder, unspecified; F32.A Depression, unspecified; M54.50 Low back pain, unspecified; F90.9 Attention-deficit hyperactivity disorder, unspecified type; B37.31 Acute candidiasis of vulva and vagina; M54.59 Other low back pain; R48.0 Dyslexia and alexia; Z79.899 Other long term (current) drug therapy; Z88.6 Allergy status to analgesic agent; Z81.8 Family history of other mental and behavioral disorders; Z82.49 Family history of ischemic heart disease and other diseases of the circulatory system; Z83.3 Family history of diabetes mellitus
CPT/HCPCS: 36415; 71045; 80048; 80053; 80061; 80076; 80305; 80320; 81001; 81025; 84145; 84443; 85025; 85651; 86704; 86705; 86706; 86803; 87081; 87340; 87522; 87811; 99284; 99285; G0378; J1885; Q0163; Q0177

== ENCOUNTER 2024-12-01 17:07 | Emergency (ER) | payer MEDICARE, MEDICAID ==
[~2024-12-01 17:07] MED LIST changes: -ACET650T2 PO; -ATOR20TA66 PO; +ATOR40TA72 PO; +BAC10T PO; -BACL10TA2 PO; +CETI10TA14 PO; -CLOT10TR PO; -FLUO-167 PO; +FLUO40CA PO; -GABA-1405 PO; +GABA-1555 PO; -HYDR-3686 PO; +HYDR50CA5 PO; -OLAN5TAB75 PO; -QUET-1 PO; +QUET200T31 PO; +RISP-32 PO
== END 2024-12-01 18:17 | disposition left against medical advice (07) ==
LOC: ER 17:08
DX: R07.81 Pleurodynia (principal); Z53.21 Procedure and treatment not carried out due to patient leaving prior to being seen by health care provider

== ENCOUNTER 2024-12-05 20:39 | Emergency (ER) | payer MEDICARE, MEDICAID ==
[~2024-12-05] VITALS: Ht 165.1 cm; Wt 100.2 kg
[2024-12-05 21:13] VITALS: BP 108/73; PULSE 103; RESP 16; O2SAT 97
[2024-12-05] MEDS ORDERED: ACET-2615 PO (22:09)
[2024-12-05] MEDS: acetaminophen 325mg tablet PO ONE (22:17)
[2024-12-05 22:25] VITALS: TEMP 98
== END 2024-12-05 22:27 | disposition home or self-care (01) ==
LOC: ER 20:40
DX: M54.50 Low back pain, unspecified (principal); F41.9 Anxiety disorder, unspecified; Z88.6 Allergy status to analgesic agent
CPT/HCPCS: 99284

== ENCOUNTER 2024-12-18 18:27 | Emergency (ER) | payer MEDICARE, MEDICAID ==
[~2024-12-18] VITALS: Ht 172.7 cm; Wt 96.8 kg
[2024-12-18 18:56] VITALS: TEMP 97.8
[2024-12-18 20:44] VITALS: BP 130/79; PULSE 88; RESP 14; O2SAT 99
[2024-12-18 22:29] LABS: STREP A SCREEN NEGATIVE (Neg)
[2024-12-18] MEDS ORDERED: IBUP-1986 PO (22:49)
[2024-12-18] MEDS ORDERED: RISP2TAB52 PO (22:49)
[2024-12-18] MEDS ORDERED: olanzapine 10mg tablet PO STA (23:56)
[2024-12-18] MEDS: OLANZAPINE 5 MG TABLET PO STA (23:59)
== END 2024-12-19 01:01 | disposition home or self-care (01) ==
LOC: ER 18:28
DX: Z00.8 Encounter for other general examination (principal); J02.9 Acute pharyngitis, unspecified; F41.9 Anxiety disorder, unspecified; Z88.6 Allergy status to analgesic agent; Z88.8 Allergy status to other drugs, medicaments and biological substances
CPT/HCPCS: 87081; 87880; 99283

== ENCOUNTER 2024-12-23 10:55 | Emergency (ER) | payer MEDICARE, MEDICAID ==
[~2024-12-23 10:55] MED LIST changes: +IBUP-1986 PO; +RISP2TAB52 PO
== END 2024-12-23 12:49 | disposition left against medical advice (07) ==
LOC: ER 10:55
DX: J02.9 Acute pharyngitis, unspecified (principal); Z53.21 Procedure and treatment not carried out due to patient leaving prior to being seen by health care provider; Z88.6 Allergy status to analgesic agent; Z88.8 Allergy status to other drugs, medicaments and biological substances

== ENCOUNTER 2024-12-29 17:10 | Emergency (ER) | payer MEDICARE, MEDICAID ==
[~2024-12-29] VITALS: Ht 165.1 cm; Wt 89.0 kg
[2024-12-29 17:18] VITALS: BP 115/68; PULSE 85; RESP 16; TEMP 97.7; O2SAT 97
[2024-12-29] MEDS ORDERED: FLUO40CA PO (18:19)
[2024-12-29] MEDS ORDERED: HYDR50CA5 PO (18:19)
== END 2024-12-29 19:02 | disposition home or self-care (01) ==
LOC: ER 17:11
DX: F41.9 Anxiety disorder, unspecified (principal); Z76.0 Encounter for issue of repeat prescription; Z88.6 Allergy status to analgesic agent; Z88.8 Allergy status to other drugs, medicaments and biological substances
CPT/HCPCS: 99281

== ENCOUNTER 2025-03-30 09:15 | Emergency (ER) | payer MEDICARE, MEDICAID ==
[~2025-03-30] VITALS: Ht 165.1 cm; Wt 99.2 kg
[~2025-03-30 09:15] MED LIST changes: -BAC10T PO; +BACL-145 PO
--- NOTE | 2025-03-30 09:48 | Physician Documentation ---
HPI ~ General Chief Complaint: Medication Refill Stated Complaint: ANXIETY, REFILL ON MEDS Time Seen by MD: 09:36 Primary Medical Doctor: DAV DAVISON History of Present Illness HPI Comments This is a 34-year-old female with history of mental health conditions who presents requesting refill of medications, patient reports that her primary care provider we will not refill medications until she is seen on April 09. Patient reports that she has been on her current doses for some time in his stable in the medications, patient reports she does not know her doses and reports they should all be in the computer. Medication Reconciliation Allergies: Coded Allergies: aspirin (Verified Allergy, Intermediate, N/V, 03/30/25) ibuprofen (Verified Allergy, Intermediate, N/V, 03/30/25) Scheduled Atorvastatin Calcium (Atorvastatin Calcium), 1 TAB PO DAILY Baclofen (Baclofen), 10 MG PO BID Cetirizine HCl (Cetirizine HCl), 10 MG PO DAILY Fluoxetine Hcl (Fluoxetine Hcl), 1 MG PO BID Gabapentin (Gabapentin), 1 TAB PO Q8H Ibuprofen (Ibuprofen), 1 TAB PO Q8H Risperidone (Risperidone), 1 TAB PO HS Risperidone (Risperidone), 2 MG PO TID Scheduled PRN Hydroxyzine Pamoate (Hydroxyzine Pamoate), 1 CAP PO Q4H PRN for for anxiety/agitation Quetiapine Fumarate (Quetiapine Fumarate), 200 MG PO HS PRN for sleep Past Medical History Past Medical History: Anxiety Past Surgical History: no surgical history Patient History: FH: diabetes mellitus FATHER (tumor on kidney), MOTHER (heart failure,) Alcohol Use: None Drug Use: none Lives In: Home Review of Systems ROS As stated above in the HPI, otherwise all systems are reviewed and negative. Physical Exam Physical Exam Vital Signs: Temperature: 97.1, Source: Temporal, Heart Rate: 89, Respiratory Rate: 16, BP: 118/79, Pulse Oximetry: 96, Weight: 99.150 Oxygen Flow Rate: 0 Physical Exam VITALS: Reviewed and as above. GENERAL: Alert and oriented x4, nontoxic appearing, no apparent distress. RESPIRATORY: No increased work of breathing, no respiratory distress, speaking in full clear sentences PSYCH: Normal mood and affect, no agitation Progress Results/Orders Results/Orders Vital Signs 03/30/25 03/30/25 09:25 10:06 Temp 97.1 98.5 Pulse 89 84 Resp 16 18 B/P (MAP) 118/79 118/78 Pulse Ox 96 98 O2 Flow Rate 0 Medical Decision Making Findings This 34-year-old female presented requesting medication refill medications, patient does have follow up with her primary care provider to refill medications by forward however this is not for approximately two weeks, as patient has been stable on previously prescribed medications she will be prescribed a two week supply of medications until she can follow up with the primary care provider. Patient reports feeling otherwise well and and physical exam benign patient is appropriate for outpatient follow up. Differential Dx:Considerations: Include: Adverse circumstances, Economic, Psychosocial, Medical services unavail., Medication refill, Medication non-comp liance Departure Disposition: HOME / SELF CARE / HOMELESS Impression: Primary Impression: General medical exam Condition: Improved Discharge Instructions: Medicine Refill at the Emergency Department Additional Instructions: I have refilled your medications until you can see your primary care provider, please take the medications as previously prescribed. Please follow up with your primary care provider in the next few days. Please return to the emergency department for any new or worsening concerning symptoms. Referrals: NO PRIMARY CARE PROVIDER (PCP) Prescriptions Fluoxetine Hcl (Fluoxetine Hcl) 40 Mg Capsule 1 MG PO BID for 14 Days, #28 CAP Prov: MAGALI GAUTHIER 03/30/25 Risperidone (Risperidone) 2 Mg Tablet 2 MG PO TID for 14 Days, #42 TAB Prov: MAGALI GAUTHIERP 03/30/25 Cetirizine HCl (Cetirizine HCl) 10 Mg Tablet 10 MG PO DAILY for 14 Days, #14 TAB Prov: MAGALI GAUTHIERP 03/30/25 Atorvastatin Calcium (Atorvastatin Calcium) 40 Mg Tablet 1 TAB PO DAILY for 14 Days, #14 TAB Prov: MAGALI GAUTHIERP 03/30/25 Education Educated: Patient Educated regarding: diagnosis, treatment, prognosis, need for follow up Signature Scribe Signature: No scribe Attestation: The note accurately reflects work and decisions made by me.JAMEY Vargas 03/30/25 21:32 MAGALI GAUTHIER Mar 30, 2025 09:48
[2025-03-30] MEDS ORDERED: ATOR40TA72 PO (09:57)
[2025-03-30] MEDS ORDERED: CETI10TA14 PO (09:57)
[2025-03-30] MEDS ORDERED: RISP-32 PO (09:58)
[2025-03-30 10:06] VITALS: BP 118/78; PULSE 84; RESP 18; TEMP 98.5; O2SAT 98
== END 2025-03-30 10:06 | disposition home or self-care (01) ==
LOC: ER 09:16
DX: F41.9 Anxiety disorder, unspecified (principal); Z76.0 Encounter for issue of repeat prescription; Z88.8 Allergy status to other drugs, medicaments and biological substances; Z88.6 Allergy status to analgesic agent; Z79.899 Other long term (current) drug therapy
CPT/HCPCS: 99281

== ENCOUNTER 2025-04-29 13:40 | Emergency (ER) | payer MEDICARE, MEDICAID ==
[~2025-04-29] VITALS: Ht 165.1 cm; Wt 100.0 kg
[2025-04-29 14:14] VITALS: BP 127/73; PULSE 98; RESP 18; O2SAT 97
[2025-04-29] MEDS ORDERED: BUSP10TA11 PO (17:33)
--- NOTE | 2025-04-29 17:33 | Physician Documentation ---
History of Present Illness ~ Chief Complaint: Anxiety Stated Complaint: ANXIETY Time Seen by MD: 14:44 Primary Medical Doctor: [facility] EUGENE AGUILERA Patient is seen today with complaints of anxiety. Patient states she has been seeing at a clinic for depression anxiety in his trying to get an appointment with a psychiatrist however she has not been able to do so. Patient states she is having significant anxiety currently and wants a tries in his Xanax or some lorazepam. Patient denies any current chest pain or shortness of breath or abdominal pain or nausea, vomiting, diarrhea. Patient currently denies any suicidal ideation or homicidal ideation. Medication Reconciliation Allergies: Coded Allergies: aspirin (Verified Allergy, Intermediate, N/V, 03/30/25) ibuprofen (Verified Allergy, Intermediate, N/V, 03/30/25) Scheduled Atorvastatin Calcium (Atorvastatin Calcium), 1 TAB PO DAILY Baclofen (Baclofen), 10 MG PO BID Cetirizine HCl (Cetirizine HCl), 10 MG PO DAILY Fluoxetine Hcl (Fluoxetine Hcl), 1 MG PO BID Gabapentin (Gabapentin), 1 TAB PO Q8H Ibuprofen (Ibuprofen), 1 TAB PO Q8H Risperidone (Risperidone), 1 TAB PO HS Risperidone (Risperidone), 2 MG PO TID Scheduled PRN Hydroxyzine Pamoate (Hydroxyzine Pamoate), 1 CAP PO Q4H PRN for for anxiety/agitation Quetiapine Fumarate (Quetiapine Fumarate), 200 MG PO HS PRN for sleep Past Medical History Past Medical History: Anxiety Past Surgical History: no surgical history Patient History: FH: diabetes mellitus FATHER (tumor on kidney), MOTHER (heart failure,) Alcohol Use: None Drug Use: none Lives In: Home Review of Systems Constitutional: Denies: chills, fever, weakness Eyes: Denies: pain, blurred vision ENT: Denies: ear pain, nose pain, throat pain, mouth pain Respiratory: Denies: cough, shortness of breath Cardiovascular: Denies: chest pain, palpitations Gastrointestinal: Denies: abdominal pain, nausea, vomiting Genitourinary: Denies: burning, dysuria Female Genitalia: Denies: vaginal discharge, pelvic pain Neurological: Denies: headache, dizziness Musculoskeletal: Denies: pain, swelling Integumentary: Denies: rash, lesions Allergic/Immunologic: Denies: hives, itching Hematologic/Lymphatic: Denies: no symptoms reported Psychiatric: Denies: depression, anxiety Physical Exam Vital Signs: Temperature: 97.8, Source: Temporal, Heart Rate: 98, Respiratory Rate: 18, BP: 127/73, Pulse Oximetry: 97, Weight: 100.000 Physical Exam General: Awake and Alert, no acute distress. HEENT: Conjunctiva pink, Sclera clear, Mucus Membranes moist. Neck: Supple without masses and tenderness. Resp: Unlabored. Lungs clear to auscultation bilaterally. Heart: Regular Rate and rhythm, normal S1 and S2 without murmur, rub or gallop. Abdomen: Soft and non tender no organomegaly Extremities: No cyanosis,clubbing or edema. Skin: Warm and Dry. Progress Results/Orders Results/Orders Vital Signs 04/29/25 14:14 Temp 97.8 Pulse 98 Resp 18 B/P (MAP) 127/73 Pulse Ox 97 Medical Decision Making Findings Patient is seen today with complaints of anxiety. Patient states she has been seeing at a clinic for depression anxiety in his trying to get an appointment with a psychiatrist however she has not been able to do so. Patient states she is having significant anxiety currently and wants a tries in his Xanax or some lorazepam. Patient denies any current chest pain or shortness of breath or abdominal pain or nausea, vomiting, diarrhea. Patient currently denies any suicidal ideation or homicidal ideation. Patient was given prescription of BuSpar 10 mg one tab twice a day as needed for anxiety. Patient will follow up with primary care as soon as possible for further eval and treatment of anxiety and referral to Psychiatry. Patient will return to ED with any worsening, concerning or changing symptoms. Departure Disposition: HOME / SELF CARE / HOMELESS Impression: Primary Impression: Anxiety Condition: Stable Additional Instructions: Patient was given prescription of BuSpar 10 mg one tab twice a day as needed for anxiety. Patient will follow up with primary care as soon as possible for further eval and treatment of anxiety and referral to Psychiatry. Patient will return to ED with any worsening, concerning or changing symptoms. Referrals: NO PRIMARY CARE PROVIDER (PCP) Prescriptions Buspirone Hcl* (Buspar*) 10 Mg Tablet 1 TAB PO Q12H for 7 Days, #14 TAB Prov: RILEY WELLS 04/29/25 Signature Scribe Signature: No scribe Attestation: No scribe RILEY WELLS Apr 29, 2025 17:33
[2025-04-29 17:39] VITALS: TEMP 97.8
== END 2025-04-29 17:40 | disposition home or self-care (01) ==
LOC: ER 13:40
DX: F41.9 Anxiety disorder, unspecified (principal); Z88.6 Allergy status to analgesic agent; Z88.8 Allergy status to other drugs, medicaments and biological substances
CPT/HCPCS: 99283

== ENCOUNTER 2025-07-05 18:31 | Emergency (ER) | payer MEDICARE, MEDICAID ==
[~2025-07-05] VITALS: Ht 165.1 cm; Wt 113.0 kg
[~2025-07-05 18:31] MED LIST changes: +ATOR-411 PO; -ATOR40TA72 PO; -BACL-145 PO; +BACL10TA2 PO; -CETI10TA14 PO; +FLUO20CA41 PO; -FLUO40CA PO; +GABA-1405 PO; -GABA-1555 PO; +HYDR-3686 PO; -HYDR50CA5 PO; -IBUP-1986 PO; +QUET-1 PO; -QUET200T31 PO; -RISP-32 PO; +TRAM50TA2 PO; +TRAZ-251 PO
[2025-07-05 18:44] VITALS: TEMP 98.7
[2025-07-05] MEDS ORDERED: TRAZ-251 PO (19:55)
[2025-07-05 20:01] LABS: LEUKOCYTE ESTERASE ,URINE NEGATIVE (Neg); NITRITES, URINE NEGATIVE (Neg); OCCULT BLOOD,URINE NEGATIVE (Neg)
[2025-07-05 20:03] LABS: PREOP URINE HCG NEGATIVE (NEGATIVE)
[2025-07-05 20:06] LABS: MEAN PLATELET VOLUME 7.1 FL (7.4-10.4); RED CELL DISTRIBUTION WIDTH 13.8 % (11.5-14.5)
[2025-07-05 20:09] LABS: UA COLLECTION TYPE VOIDED
[2025-07-05 20:23] LABS: CREATININE 0.72 MG/DL (0.40-0.90); TOTAL CARBON DIOXIDE 26.9 MMOL/L (24-32); eCRCL 98 ML/MIN; eGFR > 90 ML/MIN
[2025-07-05 20:26] LABS: URINE AMPHETAMINE SCREEN NEGATIVE (Neg); URINE BARBITUATE SCREEN NEGATIVE (Neg); URINE BENZODIAZEPINES SCREEN NEGATIVE (Neg); URINE CANNABINOID SCREEN NEGATIVE (Neg); URINE COCAINE SCREEN NEGATIVE (Neg); URINE METHADONE SCREEN NEGATIVE (Neg); URINE OPIATE SCREEN NEGATIVE (Neg); URINE PHENCYCLIDINE SCREEN NEGATIVE (Neg)
--- NOTE | 2025-07-05 21:29 | Physician Documentation ---
History of Present Illness ~ Chief Complaint: Mental Health Eval Stated Complaint: ANXIETY Time Seen by MD: 18:50 Primary Medical Doctor: DAV DAVISON Mode of Arrival: EMS HPI 34-year-old female presenting with suicidal thoughts Here in the ED, she endorses thoughts of self-harm. When asked her she denies any specific plan. She denies any physical self-harm today or ingestion. Denies any acute medical concerns. Reports a history of anxiety and panic attacks. She does not currently have any medications for this. She is currently living at the [place] Medication Reconciliation Allergies: Coded Allergies: aspirin (Verified Allergy, Intermediate, N/V, 07/05/25) ibuprofen (Verified Allergy, Intermediate, N/V, 07/05/25) Scheduled Atorvastatin Calcium (Lipitor), 1 TAB PO DAILY, (Reported) Baclofen (Baclofen), 1 TAB PO BID, (Reported) Fluoxetine Hcl* (Prozac*), 2 CAP PO BIDBL, (Reported) Gabapentin (Gabapentin), 1 TAB PO TID, (Reported) Quetiapine Fumarate* (Seroquel*), 2 TAB PO HS, (Reported) Risperidone (Risperidone), 1 TAB PO TID, (Reported) Trazodone HCl (Trazodone HCl), 1 TAB PO HS, (Reported) Scheduled PRN Hydroxyzine Hcl* (Atarax*), 2 TAB PO QID PRN for for anxiety/agitation, (Reported) Tramadol HCl (Tramadol HCl), 1 TAB PO Q12H PRN PRN for pain, (Reported) Past Medical History Past Medical History: Anxiety Past Surgical History: no surgical history Last Menstrual Period: May 02, 2025 Patient History: FH: diabetes mellitus FATHER (tumor on kidney), MOTHER (heart failure,) Alcohol Use: None Drug Use: none Lives In: Home Review of Systems Constitutional: Denies: fever Psychiatric: Reports: suicidal Physical Exam Vital Signs: Temperature: 98.7, Source: Oral, Heart Rate: 97, Respiratory Rate: 18, BP: 131/86, Pulse Oximetry: 97, Weight: 113.000 Oxygen Flow Rate: 0 Physical Exam General: This is a tired and sad appearing young girl not in distress Heart: Regular rate and rhythm, normal-appearing peripheral perfusion Lungs: normal work of breathing, normal oxygen saturation on room air Extremities: Warm and well-perfused Neuro: Alert and oriented Psychiatric: Flattened affect, endorses thoughts of self-harm without a specific plan. Does not appear to be responding to internal stimuli Progress Progress Note 937 received in s/o 34 yof SI pending eval no acute overnight events. 958 am evaluated patient, they find no cause for 5150. He contacted her outpatient team and safety plan in place. Results/Orders Results/Orders Medications Received in ER Medications (Trade) Dose Ordered Sig/Ibrahima Route PRN Reason Start Time Stop Time Status Last Admin Dose Admin (Prozac capsule) 40 mg BIDBL PO 07/06/25 07:30 07/06/25 08:03 40 MG (Lipitor tablet) 40 mg DAILY PO 07/06/25 08:00 07/06/25 08:04 40 MG Vital Signs 07/05/25 07/06/25 07/06/25 18:44 08:03 09:06 Temp 98.7 Pulse 97 88 Resp 18 16 16 B/P (MAP) 131/86 113/71 (85) Pulse Ox 97 95 O2 Flow Rate 0 Laboratory Tests Test 07/05/25 19:00 07/05/25 19:53 07/05/25 20:07 Urine Specimen Description Voided Urine Color Yellow Urine Clarity Clear Urine pH 5.5 Urine Specific [place] >=1.030 Urine Protein Negative Urine Glucose (UA) Negative Urine Ketones Negative Urine Occult Blood Negative Urine Nitrite Negative Urine Bilirubin Negative Urine Urobilinogen 0.2 Urine Leukocyte Esterase Negative Urine Culture Indicated Not ind Volume Urine Centrifuged 10 ml Urine HCG, Qualitative Negative Urine Comment Urine Opiates Screen Negative Urine Methadone Screen Negative Urine Fentanyl Screen Negative Urine Barbiturates Screen Negative Urine Phencyclidine Screen Negative Urine Amphetamines Screen Negative Urine Benzodiazepines Screen Negative Urine Cocaine Screen Negative Urine Cannabinoids Screen Negative Drug Screen Comment White Blood Count 10.7 Red Blood Count 3.57 L Hemoglobin 11.5 L Hematocrit 33.5 L Mean Corpuscular Volume 93.8 Mean Corpuscular Hemoglobin 32.2 H Mean Corpuscular Hemoglobin Concent 34.4 Red Cell Distribution Width 13.8 Platelet Count 376 Mean Platelet Volume 7.1 L Neutrophils (%) (Auto) 65.3 Lymphocytes (%) (Auto) 26.3 Monocytes (%) (Auto) 6.3 Eosinophils (%) (Auto) 1.4 Basophils (%) (Auto) 0.7 Neutrophils # (Auto) 7.0 Lymphocytes # (Auto) 2.8 Monocytes # (Auto) 0.7 Eosinophils # (Auto) 0.2 Basophils # (Auto) 0.1 CBC Comment Sodium Level 141 Potassium Level 3.7 Chloride Level 107 Carbon Dioxide Level 26.9 Anion Gap 7 L Blood Urea Nitrogen 10 Creatinine 0.72 Estimated GFR/1.73 m2 > 90 BUN/Creatinine Ratio 13.9 Glucose Level 121 H Calcium Level 8.8 Total Bilirubin 0.4 Aspartate Amino Transf (AST/SGOT) 11 Alanine Aminotransferase (ALT/SGPT) 20 Alkaline Phosphatase 98 Total Protein 7.7 Albumin 3.4 Globulin 4.3 Albumin/Globulin Ratio 0.8 L Thyroid Stimulating Hormone (TSH) 0.64 Chemistry Comments SARS-CoV-2 Antigen (Rapid) Negative Medical Decision Making Differential Dx:Considerations: Include: Anxiety, Depression, Substance abuse, Suicidal Differential Diagnosis The patient presents with suicidal ideation without a specific plan. She has no findings to suggest an acute medical or surgical emergency. Mental screening labs are unremarkable. She is medically cleared for mental health team evaluation. Departure Disposition: HOME / SELF CARE / HOMELESS Impression: Primary Impression: Anxiety Additional Instructions: Please return if you have any thoughts of harming yourself. Referrals: NO PRIMARY CARE PROVIDER (PCP) Signature Scribe Signature: na Attestation: FELIX De Santiago MD Jul 05, 2025 21:29 SHARON ZARATE MD Jul 06, 2025 09:38
[2025-07-06 11:01] VITALS: BP 116/73; PULSE 96; RESP 18; O2SAT 96
== END 2025-07-06 11:37 | disposition home or self-care (01) ==
LOC: ER 18:32
DX: F41.9 Anxiety disorder, unspecified (principal); Z79.899 Other long term (current) drug therapy; Z88.6 Allergy status to analgesic agent; Z20.822 Contact with and (suspected) exposure to COVID-19
CPT/HCPCS: 36415; 80053; 80305; 81003; 81025; 84443; 85025; 87811; 99284; 99285

== ENCOUNTER 2025-07-18 15:13 | Emergency (ER) | payer MEDICARE, MEDICAID ==
[~2025-07-18] VITALS: Ht 165.1 cm; Wt 112.7 kg
[2025-07-18 15:21] VITALS: BP 125/69; PULSE 102; RESP 16; TEMP 97.4; O2SAT 98
[2025-07-18] MEDS ORDERED: HYDR-3686 PO (15:29)
--- NOTE | 2025-07-18 15:29 | Physician Documentation ---
History of Present Illness ~ Chief Complaint: Anxiety Stated Complaint: ANXIETY Time Seen by MD: 15:24 Primary Medical Doctor: DAV DAVISON Source: patient Mode of Arrival: POV Exam Limitations: no limitations HPI 34-year-old female with history of anxiety and bipolar was brought in by EMS for panic attack today she is brought in by the [facility]. No other acute concerns Medication Reconciliation Allergies: Coded Allergies: aspirin (Verified Allergy, Intermediate, N/V, 07/18/25) ibuprofen (Verified Allergy, Intermediate, N/V, 07/18/25) Scheduled Atorvastatin Calcium (Lipitor), 1 TAB PO DAILY, (Reported) Baclofen (Baclofen), 1 TAB PO BID, (Reported) Fluoxetine Hcl* (Prozac*), 2 CAP PO BIDBL, (Reported) Gabapentin (Gabapentin), 1 TAB PO TID, (Reported) Quetiapine Fumarate* (Seroquel*), 2 TAB PO HS, (Reported) Risperidone (Risperidone), 1 TAB PO TID, (Reported) Trazodone HCl (Trazodone HCl), 1 TAB PO HS, (Reported) Scheduled PRN Hydroxyzine Hcl* (Atarax*), 2 TAB PO QID PRN for for anxiety/agitation, (Reported) Tramadol HCl (Tramadol HCl), 1 TAB PO Q12H PRN PRN for pain, (Reported) Past Medical History Past Medical History: Anxiety Past Surgical History: no surgical history Patient History: FH: diabetes mellitus FATHER (tumor on kidney), MOTHER (heart failure,) Alcohol Use: None Drug Use: none Lives In: Home Review of Systems All Other Systems at this time: Reviewed and Negative Psychiatric: Reports: see HPI Physical Exam Vital Signs: RN Vital Signs have been reviewed: Yes, Temperature: 97.4, Source: Temporal, Heart Rate: 102, Respiratory Rate: 16, BP: 125/69, Pulse Oximetry: 98, Weight: 112.700 Oxygen Flow Rate: 0 Physical Exam General: Alert, no apparent distress. HEENT: moist mucous membranes. Neck: Full range of motion. Respiratory: No respiratory distress speaking in full sentences Chest: No accessory muscle use. Cardiovascular: Appears well perfused Neurologic: Oriented x4. Psychiatric: Normal mood and affect. No anxiety noted Skin: Normal color, warm and dry. No edema, no ecchymosis. Progress Results/Orders Results/Orders Vital Signs 10/10/25 15:21 Temp 97.4 Pulse 102 Resp 16 B/P (MAP) 125/69 Pulse Ox 98 O2 Flow Rate 0 Medical Decision Making Findings Patient immediately went from the [facility] via EMS outside to smoke. History of anxiety. We will prescribe hydroxyzine to follow up with primary care of the [facility] Departure Time of Disposition: 15:28 Disposition: 01 HOME / SELF CARE / HOMELESS Impression: Primary Impression: Anxiety Condition: Stable Discharge Instructions: Panic Attack Additional Instructions: Medication as prescribed and follow up with primary care urgent care or [facility] for further treatment and evaluation of anxiety Referrals: NO PRIMARY CARE PROVIDER (PCP) Prescriptions Hydroxyzine Hcl* (Atarax*) 25 Mg Tablet 1 TAB PO Q8H for anxiety for 30 Days, #90 TAB Prov: YANIRA REID NP 07/18/25 Education Educated: Patient Educated regarding: diagnosis, treatment, need for follow up Signature Scribe Signature: No scribe Attestation: The note accurately reflects work and decisions made by me.Yanira Reid - JAMEY 07/18/25 15:29 YANIRA REID NP Jul 18, 2025 15:29
[2025-07-22] MEDS ORDERED: FLUO40CA PO (12:18)
[2025-07-22] MEDS ORDERED: OLAN5TAB75 PO (12:18)
[2025-07-22] MEDS ORDERED: HYDR50TA65 PO (12:18)
[2025-07-22] MEDS ORDERED: RISP-32 PO (12:18)
== END 2025-07-18 16:17 | disposition home or self-care (01) ==
LOC: ER 15:14
DX: F41.0 Panic disorder [episodic paroxysmal anxiety] (principal); F31.9 Bipolar disorder, unspecified; Z88.6 Allergy status to analgesic agent; Z79.899 Other long term (current) drug therapy
CPT/HCPCS: 99283

== ENCOUNTER 2025-09-28 10:30 | Inpatient (IN) | payer MEDICARE, MEDICAID ==
[~2025-09-28] VITALS: Ht 165.1 cm; Wt 118.2 kg
[~2025-09-28 10:30] MED LIST changes: -FLUO20CA41 PO; +FLUO40CA PO; -HYDR-3686 PO; +HYDR50TA65 PO; +NICO-631 TD; +NICO-907 BC; +NYSPWD TP; -RISP2TAB52 PO; +RISP3TAB42 PO; -TRAM50TA2 PO
--- NOTE | 2025-09-28 13:13 | ELECTROCARDIOGRAPH REPORT ---
[facility] Test Date: 2025-09-28 Test Time: 13:13:17 Pat Name: VIKTOR FERNÁNDEZ Department: [facility] Patient ID: [facility]-[id number] Room: [place] [id number] Gender: F Community Engagement Coordinator: : 1990 Requested By: PARVIZ CHANG Order Number: [id number] Reading MD: Dr. Quang Street Measurements Intervals Lane Rate: 123 P: 52 MI: 94 QRS: 59 QRSD: 83 T: -44 QT: 307 QTc: 439 Interpretive Statements Sinus tachycardia Borderline repolarization abnormality Electronically Signed On 10-01-2025 21:15:[address] Please click the below link to view image of tracing.
[2025-09-28 13:33] LABS: MEAN PLATELET VOLUME 7.4 FL (7.4-10.4); RED CELL DISTRIBUTION WIDTH 13.5 % (11.5-14.5)
--- NOTE | 2025-09-28 13:43 | RADIOLOGY REPORT ---
CHEST RADIOGRAPH INDICATION: SEPSIS TECHNIQUE: Single frontal view of the chest was obtained. COMPARISON: DI CHEST,SINGLE VIEW on DOS: 11/19/24, UNI RIBS WITH PA CHEST on DOS: 03/09/23 FINDINGS: No focal consolidation. No significant pleural effusion. No pneumothorax. Stable cardiomediastinal silhouette. IMPRESSION: No acute pulmonary process.
[2025-09-28 13:48] LABS: CREATININE 0.71 MG/DL (0.40-0.90); TOTAL CARBON DIOXIDE 25.4 MMOL/L (24-32); eCRCL 99 ML/MIN; eGFR > 90 ML/MIN
[2025-09-28] MEDS: normal saline 1000ML IV soln IVB ONE (14:03)
[2025-09-28] MEDS: CefTRIAXone 2gm/D5W 50ml BAG 50 ML IV ONE (14:03)
[2025-09-28] MEDS: vancomycin/NS 1 GM ADD-VANTAGE 250 ML IV SCH (14:11)
[2025-09-28 14:26] LABS: LEUKOCYTE ESTERASE ,URINE NEGATIVE (Neg); NITRITES, URINE NEGATIVE (Neg); OCCULT BLOOD,URINE TRACE-INTACT (Neg)
[2025-09-28 14:27] LABS: URINE HCG NEGATIVE (NEG)
[2025-09-28 14:28] LABS: UA COLLECTION TYPE CLN CATCH MIDSTREAM
[2025-09-28 14:36] LABS: MUCUS STRANDS MANY /LPF (Neg); SQUAMOUS EPITHELIAL CELL,UR MANY /LPF (FEW)
--- NOTE | 2025-09-28 15:07 | Physician Documentation ---
History of Present Illness ~ Chief Complaint: Rash Stated Complaint: RASH UNDER LEFT BREAST WITH WARMTH Time Seen by MD: 12:02 OK to notify your PCP?: Yes Primary Medical Doctor: DAV DAVISON Source: patient Mode of Arrival: POV Exam Limitations: no limitations HPI This is a 35-year-old female who comes in complaining of a rash beneath in the left breast for the past week as well as pain and redness of the left breast itself. The patient states she has had the rash under the breast for about a week and was seen by another provider who prescribed a nystatin powder. The patient states she has been compliant with the powder however it isn't improved and now with the breast itself has become tender to touch and firm. She has had subjective fever and chills. This is Medication Reconciliation Allergies: Coded Allergies: aspirin (Verified Allergy, Intermediate, N/V, 07/22/25) ibuprofen (Verified Allergy, Intermediate, N/V, 07/22/25) Scheduled Atorvastatin Calcium (Lipitor), 1 TAB PO DAILY, (Reported) Baclofen (Baclofen), 1 TAB PO BID, (Reported) Fluoxetine Hcl (Fluoxetine Hcl), 1 CAP PO BID Gabapentin (Gabapentin), 1 TAB PO TID Hydroxyzine HCl (Hydroxyzine HCl), 1 TAB PO QID Nicotine 14 MG Patch* (Habitrol 14 MG Patch*), 1 PATCH TD DAILY Nystatin (NYSTOP powder), 1 APPLIC TP TID Quetiapine Fumarate* (Seroquel*), 2 TAB PO HS, (Reported) Risperidone (Risperidone), 1 TAB PO Q12H Trazodone HCl (Trazodone HCl), 1 TAB PO HS Scheduled PRN Nicotine Polacrilex (Nicotine Lozenge), 2 MG BC Q2H PRN for NICOTINE CRAVING Past Medical History Past Medical History: Anxiety Past Surgical History: no surgical history Patient History: FH: depression FATHER (tumor on kidney), , Onset:Unknown FH: diabetes mellitus FATHER (tumor on kidney), , Onset:Unknown MOTHER, Onset:Unknown (heart failure,) Alcohol Use: None Drug Use: none Lives In: Home Physical Exam Vital Signs: Temperature: 99.4, Source: Oral, Heart Rate: 110, Respiratory Rate: 30, BP: 117/87, Pulse Oximetry: 97, Weight: 118.200 Oxygen Flow Rate: 0 Pulse Oximetry Reflects: adequate oxygenation General Appearance: alert, WD/WN Respiratory: no respiratory distress Chest: no accessory muscle use Skin With the [place] RN as my female fire sprinkler inspector inspected the patient has left breast. She has been erythematous slightly indurated weeping rash beneath the breast in the intertriginous area. There was also subtle erythema around with the areola with tenderness to palpation. No obvious fluctuance. No expressible discharge from the nipple itself. No obvious mass. Progress Results/Orders Reviewed/noted all lab results: Yes Results/Orders Orders - ROBER CHANG Culture Blood (09/28/25 12:48) Chest,Single View (09/28/25 13:19) Vancomycin,Trough (09/29/25 13:30) Vancomycin/Ns 1 Gm Add-[place] (Vancomyc (09/28/25 14:00) Non Formulary (09/29/25 13:30) Page Hospitalist (09/28/25 ) Completed Orders - ROBER CHANG Electrocardiogram (09/28/25 12:48) Cbc/Diff (09/28/25 12:48) MG (09/28/25 12:48) Chest,Single View (09/28/25 13:19) Hcg, Ur Ql (09/28/25 12:48) Procalcitonin (09/28/25 12:48) BMP (09/28/25 12:48) Lacticsepsis (09/28/25 12:48) Normal Saline 1000ml (0.9% Sodium Chlori (09/28/25 13:40) Vancomycin*Pharmacy To Dose* (Vancomycin (09/28/25 13:40) Ceftriaxone 2gm/D5w 50ml Bag (Rocephin 2 (09/28/25 13:40) Ua W/Microscopic, Cult If Ind (09/28/25 13:56) Medications Received in ER Medications (Trade) Dose Ordered Sig/Ibrahima Route PRN Reason Start Time Stop Time Status Last Admin Dose Admin (0.9% sodium chloride (NS) 1000ml IV soln) 2,000 ml ONCE ONCE IVB 09/28/25 13:40 09/28/25 13:43 DC 09/28/25 14:03 2,000 ML Ceftriaxone Sodium/Dextrose 50 ml @ 100 mls/hr ONCE ONCE IV 09/28/25 13:40 12/21/25 14:09 DC 09/28/25 14:03 100 MLS/HR Vancomycin HCl 250 ml @ 166 mls/hr Q8H@0600,1400,2200 IV 09/28/25 14:00 09/28/25 14:11 166 MLS/HR Vital Signs 09/28/25 09/28/25 09/28/25 09/28/25 10:43 12:49 13:40 14:56 Temp 100.0 99.4 Pulse 123 125 119 110 Resp 20 18 20 30 B/P (MAP) 125/80 122/84 (97) 130/77 (94) 117/87 (97) Pulse Ox 96 99 97 97 O2 Flow Rate 0 0 0 Laboratory Tests Test 09/28/25 13:08 09/28/25 13:56 White Blood Count 16.3 H Red Blood Count 3.95 L Hemoglobin 12.3 Hematocrit 35.8 Mean Corpuscular Volume 90.6 Mean Corpuscular Hemoglobin 31.2 H Mean Corpuscular Hemoglobin Concent 34.5 Red Cell Distribution Width 13.5 Platelet Count 376 Mean Platelet Volume 7.4 Neutrophils (%) (Auto) 73.4 Lymphocytes (%) (Auto) 17.6 L Monocytes (%) (Auto) 8.1 Eosinophils (%) (Auto) 0.3 Basophils (%) (Auto) 0.6 Neutrophils # (Auto) 12.0 H Lymphocytes # (Auto) 2.9 Monocytes # (Auto) 1.3 H Eosinophils # (Auto) 0.0 Basophils # (Auto) 0.1 CBC Comment Sodium Level 136 Potassium Level 3.6 Chloride Level 102 Carbon Dioxide Level 25.4 Anion Gap 9 Blood Urea Nitrogen 5 L Creatinine 0.71 Estimated GFR/1.73 m2 > 90 BUN/Creatinine Ratio 7.0 L Glucose Level 118 H Lactic Acid Level 1.0 Calcium Level 9.2 Magnesium Level 1.8 Albumin 3.3 L Procalcitonin 0.08 Chemistry Comments Urine Specimen Description Cln catch midstream Urine Color Yellow Urine Clarity Cloudy Urine pH 5.5 Urine Specific [place] >=1.030 Urine Protein Trace Urine Glucose (UA) Negative Urine Ketones Negative Urine Occult Blood Trace-intact Urine Nitrite Negative Urine Bilirubin Negative Urine Urobilinogen 0.2 Urine Leukocyte Esterase Negative Urine RBC 0-2 Urine WBC 5-10 H Urine Squamous Epithelial Cells Many Urine Bacteria 3+ Urine Mucus Many Urine Culture Indicated Rejected for culture Volume Urine Centrifuged 6 ml Urine HCG, Qualitative Negative Urine Comment Low volume Microbiology Date/Time Source Procedure Growth Status 09/28/25 13:24 Blood Hand Right Blood Culture - Preliminary NEGATIVE (LESS THAN 24 HOURS) Resulted Medical Decision Making Additional information obtaine: N/A Findings When I initially evaluated the patient her heart rate was in the 130s and she was slightly febrile. I ordered a septic workup that has well as weight appropriate IV fluids, vancomycin pharmacy to dose and 2 g IV Rocephin[place] [address]. Lactic acid in his negative. I believe the patient requires admission and we will discuss the case with the hospitalist. Differential Dx:Considerations: Include: Abscess, AIDS/HIV, Anthrax (cutaneous), Atopic dermatitis, Candidiasis, Contact dermatitis, Drug reaction, Erythema multiforme, Erysipelas, Gangrene, Herpes zoster, Herpes simplex, Hidradenitis suppurativa, Impetigo, Intertrigo, Lymes disease, Molluscum contagiosum, Osteomyelitis, Pediculosis, Pityriasis rosea, Psoriaisis, RMSF, Rosacea, Scabies, Scarlet fever, Tinea, Urticaria, Varicella, Viral exanthema, Other Additional Comment Candidal rash. New onset diabetes. Mastitis. Cellulitis left breast. Abscess of the breast Departure Disposition: ADMITTED INPATIENT Admitted to Inpatient Unit: yes, to hospitalist (Danelle) Admission Level of Care: Med/Surg Impression: Primary Impression: Mastitis of left breast unrelated to or Condition: Stable Referrals: NO PRIMARY CARE PROVIDER (PCP) Signature Scribe Signature: No scribe Attestation: The note accurately reflects work and decisions made by me.Rober BRIDGES 09/28/25 15:49 ROBER CHANG Sep 28, 2025 15:07
[2025-09-28] MEDS ORDERED: magnesium sulf-water 2g/50mL 50 ML IV PRN (15:55)
[2025-09-28] MEDS ORDERED: potassium Cl 20 mEq SR tablet PO PRN ×2 (15:55)
[2025-09-28] MEDS ORDERED: ondansetron/PF 4mg/2ml inj IV PRN (15:55)
[2025-09-28] MEDS ORDERED: mag hydrox/Alum hydrox/simeth 30ml oral suspension PO PRN (15:55)
[2025-09-28] MEDS ORDERED: magnesium sulf-water 4G/100mL 100 ML IV PRN (15:55)
[2025-09-28] MEDS ORDERED: potassium Cl 40MEQ/1/2NS 520ml 520 ML IV PRN (15:55)
[2025-09-28] MEDS ORDERED: magnesium hydroxide 30ml (MOM) UD suspension PO PRN (15:55)
[2025-09-28] MEDS ORDERED: HYDROcodone/acetaminophen 5mg/325mg tablet PO PRN (15:55)
[2025-09-28] MEDS: normal saline 1000ml 1,000 ML IV SCH (16:13)
[2025-09-28] MEDS ORDERED: FLUO40CA11 PO (16:29)
[2025-09-28] MEDS ORDERED: HYDR-3686 PO (16:29)
[2025-09-28] MEDS ORDERED: TRAZ-251 PO (16:29)
[2025-09-28] MEDS ORDERED: NYSPWD TP (16:29)
[2025-09-28] MEDS ORDERED: NICO-631 TD (16:29)
[2025-09-28] MEDS ORDERED: GABA-1405 PO (16:29)
[2025-09-28] MEDS ORDERED: RISP3TAB42 PO (16:29)
--- NOTE | 2025-09-28 19:05 | HISTORY AND PHYSICAL ---
History & Physical Providers to CC ~ History of Present Illness Reason for Admit\Complaint: Secondary to severe mastitis History of Present Illness This is a 35-year-old female who presents to ED with a one-week history of a rash underneath her left breast with erythema and pain- the patient is started on nystatin powder however the erythema has significantly spread to an hours spread to her breast. The patient does not endorse being febrile and having chills at home. On arrival to the ED the patient's temperature was a 100.0 the patient is tachycardic with a heart rate in the 120s. The patient has a white blood cell count [id number]. The patient is on IV vancomycin and IV Zosyn. Blood cultures are negative thus far. Allergies: Coded Allergies: aspirin (Verified Allergy, Intermediate, N/V, 07/22/25) ibuprofen (Verified Allergy, Intermediate, N/V, 07/22/25) Home Medications Home Medications Active Reported NYSTOP powder (Nystatin) 100,000 Unit/Gram Gra 1 Applic TP TID Risperidone 3 Mg Tab.rapdis 1 Tab PO Q12H 30 Days Trazodone HCl 50 Mg Tablet 1 Tab PO HS 30 Days Habitrol 14 MG Patch* (Nicotine) 1 Each Patch.td24 1 Patch TD DAILY Atarax* (Hydroxyzine HCl) 25 Mg Tablet 2 Tab PO QID PRN Gabapentin 600 Mg Tablet 1 Tab PO Q8H 30 Days Fluoxetine Hcl (Fluoxetine HCl) 40 Mg Capsule 1 Cap PO DAILY 30 Days Seroquel* (Quetiapine Fumarate) 100 Mg Tablet 2 Tab PO HS Baclofen 10 Mg Tablet 1 Tab PO BID Lipitor (Atorvastatin Calcium) 40 Mg Tablet 1 Tab PO DAILY Past Medical History Past Medical History Schizophrenia, suicidal ideation hospitalized at [facility] July 2025, hyperlipidemia Past Surgical History Surgical History Comment No prior surgeries Family History Family History: FH: depression FATHER (tumor on kidney), , Onset:Unknown FH: diabetes mellitus FATHER (tumor on kidney), , Onset:Unknown MOTHER, Onset:Unknown (heart failure,) Past Social History Social History Comment The patient is smokes half a pack of cigarettes a day times 22 years, the patient is not drink alcohol or use illicit drugs. Full code status ROS ROS Except for positives in the HPI the rest of the 14 point review systems is negative Exam Vitals: Vital Signs Date Time Temp Pulse Resp B/P (MAP) Pulse Ox O2 Delivery O2 Flow Rate FiO2 09/28/25 14:56 110 30 117/87 (97) 97 0 09/28/25 13:40 99.4 General: Gen. No acute distress alert and oriented 4 Lungs clear to ascultation bilaterally, no wheezes rales or rhonchi appreciated Heart normal sinus rhythm no murmurs rubs or clicks noted Abdomen soft nontender bowel sounds are normoactive Lower extremities no clubbing cyanosis, nor edema appreciated bilaterally Skin medially and inferior left breast is indurated semi firm with significant erythema in his significantly moist Diagnostic Data Last Recorded Lab Results: 09/28/25 1308 09/28/25 1308 Counseling Services Smoking & Tobacco Cessation: > 10 Minutes Advance Care Planning Advanced Care plannin - 30 Minutes Problems: (1) Mastitis of left breast unrelated to or Status: Acute Additional Plan # sepsis # severe left mastitis- candidal infection with superimposed bacterial infection IV vancomycin and IV Zosyn IV fluconazole # schizophrenia Continue fluoxetine, gabapentin, PRN hydroxyzine, Seroquel and risperidone as well as trazodone # hyperlipidemia Continue atorvastatin # Tobacco abuse-I spent 12 minutes discussing smoking cessation with the patient including the risk of continuing smoke: Lung cancer, stroke, heart attack, poor wound healing, risk of MRSA skin infections. The expense of smoking cigarettes and how cigarettes have been scientifically engineered to be as addictive as humanly possible. The patient has accepted a 14 mg nicotine patch. # DVT prophylaxis SCDs SQ Lovenox I spent a total of 17 minutes on reviewing various resuscitative measures/ ACP with the patient at the time of admission. The patient has decided on full code status Date of Service: Sep 28, 2025 Billing Provider: MARIANA SEBASTIAN DO Common Visit Codes: [id number] INP/OBS CARE (HIGH) Secondary Visit Codes: [id number] CHNG SMOKING >10MIN, [id number] CARE PLAN 30 MINUTES MARIANA SEBASTIAN DO Sep 28, 2025 19:05
[2025-09-28] MEDS: nicotine 14mg patch - 24hr TD SCH (19:29)
[2025-09-28] MEDS: K and/or MAG REPLACEMENT MC SCH (20:00)
[2025-09-28] MEDS: docusate sod 100mg capsule PO SCH (20:00)
[2025-09-28] MEDS: enoxaparin 40mg/0.4ml syringe SQ SCH (21:29)
[2025-09-29] MEDS: piperacillin/tazo 4.5gm/100ml 100 ML IV SCH (00:40)
[2025-09-29] MEDS: HYDROcodone/acetaminophen 10/325mg tab PO PRN (05:31)
[2025-09-29] MEDS: fluconazole-Diflucan 200mg/NS 100 ML IV SCH (07:30)
[2025-09-29 07:55] LABS: MEAN PLATELET VOLUME 7.1 FL (7.4-10.4); RED CELL DISTRIBUTION WIDTH 13.8 % (11.5-14.5)
[2025-09-29 08:08] LABS: CREATININE 0.71 MG/DL (0.40-0.90); TOTAL CARBON DIOXIDE 25.9 MMOL/L (24-32); eCRCL 99 ML/MIN; eGFR > 90 ML/MIN
[2025-09-29 10:00] VITALS: BP 111/66; PULSE 108; RESP 15; TEMP 97.9; O2SAT 95
[2025-09-29] MEDS: VANCOMYCIN LEVEL IV ONE ×2 (13:40→21:30)
[2025-09-29 18:00] VITALS: BP 111/65; PULSE 96; RESP 16; TEMP 98.3; O2SAT 98
[2025-09-29 20:00] VITALS: RESP 16; O2SAT 98
--- NOTE | 2025-09-29 20:46 | PROGRESS NOTE ---
Daily Progress Note Providers to CC ~ Antibiotic Timeout Antibiotic Ordered?: Yes Subjective The patient states she feels about the same- I asked her how she was doing the patient felt tired I asked her she was okayed in her head she has a DS I am doing fine that has no suicidal thoughts or issues with her depression. On exam the medial and inferior breast tissue was significantly less red - a line in the demarcation was placed by nursing Objective Vital Signs Date Time Temp Pulse Resp B/P (MAP) Pulse Ox O2 Delivery O2 Flow Rate FiO2 09/29/25 19:12 17 09/29/25 10:00 97.9 108 111/66 (81) 95 Room Air 09/29/25 08:00 0.0 Result Diagram: 09/29/25 0729 09/29/25 0729 Gen. No acute distress alert and oriented 4 Lungs clear to ascultation bilaterally, no wheezes rales or rhonchi appreciated Heart normal sinus rhythm no murmurs rubs or clicks noted Abdomen soft nontender bowel sounds are normoactive Lower extremities no clubbing cyanosis, nor edema appreciated bilaterally Skin medially and inferior left breast is indurated semi firm with moderate erythema and is significantly moist Problem\Assessment\Plan Problems/Diagnosis: (1) Mastitis of left breast unrelated to or # sepsis # severe left mastitis- candidal infection with superimposed bacterial infection IV vancomycin and IV Zosyn IV fluconazole 09/29 improving in his sepsis has resolved no longer febrile and white blood cell count has normalized # schizophrenia Continue fluoxetine, gabapentin, PRN hydroxyzine, Seroquel and risperidone as well as trazodone # hyperlipidemia Continue atorvastatin # Tobacco abuse-I spent 12 minutes discussing smoking cessation with the patient including the risk of continuing smoke: Lung cancer, stroke, heart attack, poor wound healing, risk of MRSA skin infections. The expense of smoking cigarettes and how cigarettes have been scientifically engineered to be as addictive as humanly possible. The patient has accepted a 14 mg nicotine patch. # DVT prophylaxis SCDs SQ Lovenox Date of Service: Sep 29, 2025 Billing Provider: MARIANA SEBASTIAN DO Common Visit Codes: [id number] INP/OBS CARE(HIGH) MARIANA SEBASTIAN DO Sep 29, 2025 20:46
[2025-09-29 22:00] VITALS: BP 103/52; PULSE 89; RESP 16; TEMP 97.4; O2SAT 95
[2025-09-30 06:00] LABS: MEAN PLATELET VOLUME 7.2 FL (7.4-10.4); RED CELL DISTRIBUTION WIDTH 13.3 % (11.5-14.5)
[2025-09-30 06:05] LABS: CREATININE 0.75 MG/DL (0.40-0.90); TOTAL CARBON DIOXIDE 28.0 MMOL/L (24-32); eCRCL 93 ML/MIN; eGFR 87 ML/MIN
[2025-09-30 09:20] VITALS: BP 102/64; PULSE 99; RESP 20; TEMP 97.8; O2SAT 96
[2025-09-30 09:42] VITALS: RESP 20; O2SAT 99
[2025-09-30 13:09] VITALS: BP 119/60; PULSE 99; RESP 20; TEMP 98.3; O2SAT 95
[2025-09-30] MEDS: VANCOmycin 1250MG/NS 250ml Bag 250 ML IV SCH (14:13)
[2025-09-30 18:00] VITALS: BP 114/62; PULSE 97; RESP 16; TEMP 98.1; O2SAT 96
--- NOTE | 2025-09-30 18:50 | PROGRESS NOTE ---
Daily Progress Note Providers to CC ~ Antibiotic Timeout Antibiotic Ordered?: Yes Subjective The patient stated that she was okay in her head and that she just was tired- her left breast intertrigo has significantly improved the erythema is faint however that has still an area of induration Objective Vital Signs Date Time Temp Pulse Resp B/P (MAP) Pulse Ox O2 Delivery O2 Flow Rate FiO2 09/30/25 13:09 98.3 99 20 119/60 (79) 95 Room Air 09/29/25 20:00 0.0 Result Diagram: 09/30/2551609/30/25516 Gen. No acute distress alert and oriented 4 Lungs clear to ascultation bilaterally, no wheezes rales or rhonchi appreciated Heart normal sinus rhythm no murmurs rubs or clicks noted Abdomen soft nontender bowel sounds are normoactive Lower extremities no clubbing cyanosis, nor edema appreciated bilaterally Skin medially and inferior left breast is indurated semi firm with mild erythema and is significantly moist Problem\Assessment\Plan Problems/Diagnosis: (1) Mastitis of left breast unrelated to or # sepsis # severe left mastitis- intertrigo- candidal infection with superimposed bacterial infection IV vancomycin and IV Zosyn IV fluconazole 09/29 improving in his sepsis has resolved no longer febrile and white blood cell count has normalized 09/30 significantly improved however the area of induration is essentially unchanged maybe slightly smaller # schizophrenia Continue fluoxetine, gabapentin, PRN hydroxyzine, Seroquel and risperidone as well as trazodone # hyperlipidemia Continue atorvastatin # Tobacco abuse-I spent 12 minutes discussing smoking cessation with the patient including the risk of continuing smoke: Lung cancer, stroke, heart attack, poor wound healing, risk of MRSA skin infections. The expense of smoking cigarettes and how cigarettes have been scientifically engineered to be as addictive as humanly possible. The patient has accepted a 14 mg nicotine patch. # DVT prophylaxis SCDs SQ Lovenox Date of Service: Sep 30, 2025 Billing Provider: MARIANA SEBASTIAN DO Common Visit Codes: [id number] INP/OBS CARE(HIGH) MARIANA SEBASTIAN DO Sep 30, 2025 18:50
[2025-09-30 20:00] VITALS: RESP 16; O2SAT 94
[2025-09-30] MEDS: lactobacillus rhamnosus 10,000 MMU CELLS/CAPSULE PO SCH (20:19)
[2025-09-30 22:00] VITALS: BP 101/57; PULSE 94; RESP 16; TEMP 98; O2SAT 95
[2025-10-01 04:57] LABS: MEAN PLATELET VOLUME 6.9 FL (7.4-10.4); RED CELL DISTRIBUTION WIDTH 13.7 % (11.5-14.5)
[2025-10-01 05:15] LABS: CREATININE 0.83 MG/DL (0.40-0.90); TOTAL CARBON DIOXIDE 28.8 MMOL/L (24-32); eCRCL 84 ML/MIN; eGFR 78 ML/MIN
[2025-10-01 07:25] VITALS: BP 120/81; PULSE 87; RESP 14; TEMP 98.7; O2SAT 98
[2025-10-01 07:48] VITALS: RESP 14; O2SAT 98
[2025-10-01 10:00] VITALS: BP 10/55; PULSE 74; RESP 19; TEMP 98.4; O2SAT 98
[2025-10-01] MEDS ORDERED: SACC250C PO (11:42)
[2025-10-01] MEDS ORDERED: FLUC200T2 PO (11:42)
[2025-10-01] MEDS ORDERED: AMOX-117 PO (11:42)
[2025-10-01] MEDS ORDERED: HYDR-3972 PO (13:10)
[2025-10-01] MEDS ORDERED: VANCOMYCIN LEVEL IV ONE (13:30)
--- NOTE | 2025-10-01 19:54 | DISCHARGE SUMMARY ---
Discharge Summary Providers to CC ~ Discharge Summary Admission Diagnosis: SEPSIS / MASTITIS Hospital Course DATE OF ADMISSION: 09/28/2025 DATE OF DISCHARGE: 10/01/2025 Discharge Diagnosis\Comment: Sepsis was secondary to left mastitis/ candidal intertrigo with super imposed bacterial infection Schizophrenia Hyperlipidemia Tobacco use disorder Operations\Procedures: None Consultants: None Complications: None Condition on DC: Stable New Medications: Amox Tr/Potassium Clavulanate (Augmentin 875-125 Tablet) 1 Each Tablet 1 TAB PO Q12H, #10 TAB Fluconazole (Diflucan) 200 Mg Tablet 1 TAB PO DAILY for 3 Days, #3 TAB Saccharomyces Boulardii (Florastor) 250 Mg Capsule 1 CAP PO Q12H for loose stool for 10 Days, #20 CAP 0 Refills Hydrocodone Bit/Acetaminophen (Hydrocodon-Acetaminophn 10-325 tablet) 10mg- 325mg Tablet 1 TAB PO Q4H PRN for SEVERE PAIN 7-10, #10 TAB Continued Medications: Atorvastatin Calcium (Lipitor) 40 Mg Tablet 1 TAB PO DAILY, TAB Baclofen (Baclofen) 10 Mg Tablet 1 TAB PO BID, TAB Fluoxetine Hcl (Fluoxetine Hcl) 40 Mg Capsule 1 CAP PO DAILY for 30 Days, #30 CAP 0 Refills Gabapentin (Gabapentin) 600 Mg Tablet 1 TAB PO Q8H for 30 Days, #90 TAB 0 Refills Hydroxyzine Hcl* (Atarax*) 25 Mg Tablet 2 TAB PO QID PRN for for anxiety/agitation, TAB Nicotine 14 MG Patch* (Habitrol 14 MG Patch*) 1 Each Patch.td24 1 PATCH TD DAILY, PATCH Quetiapine Fumarate* (Seroquel*) 100 Mg Tablet 2 TAB PO HS, TAB Risperidone (Risperidone) 3 Mg Tab.rapdis 1 TAB PO Q12H for 30 Days, #60 TAB 0 Refills Trazodone HCl (Trazodone HCl) 50 Mg Tablet 1 TAB PO HS for 30 Days, #30 TAB 0 Refills Discharge Summary: I admitted the patient with the following HPI:This is a 35-year-old female who presents to ED with a one-week history of a rash underneath her left breast with erythema and pain- the patient is started on nystatin powder however the erythema has significantly spread to an hours spread to her breast. The patient does not endorse being febrile and having chills at home. On arrival to the ED the patient's temperature was a 100.0 the patient is tachycardic with a heart rate in the 120s. The patient has a white blood cell count 89185. The patient is on IV vancomycin and IV Zosyn. Blood cultures are negative thus far. The patient has sepsis had resolved and was the patient is no longer febrile by the and the patient is white blood cell count improved to 9400. Her erythema improved moderately by the and significantly by the and was almost resolved and essentially was resolved by the and on the her area of induration had also nearly resolved. The patient is liver function tests other than bilirubin which remained normal minimally up trended on the with an AST of 44 and ALT of 92 with an alk phos of 154 however due to the severity of the patient's intertrigo I did discharge the patient with a additional three days of p.o. fluconazole 200 mg daily and Augmentin 875/1251 tablet b.i.d. for five days as well as a probiotic and recommended to the patient that if Florastor probiotics not covered by insurance then by an [id number] probiotic. The patient's home medications were continued and there were no changes made on discharge for antidepressants or cholesterol medications Gen. No acute distress alert and oriented 4 Lungs clear to ascultation bilaterally, no wheezes rales or rhonchi appreciated Heart normal sinus rhythm no murmurs rubs or clicks noted Abdomen soft nontender bowel sounds are normoactive Lower extremities no clubbing cyanosis, nor edema appreciated bilaterally Skin medially and inferior left breast is mildly indurated semi firm with significantly faint erythema. The patient requested pain medication for discharge and I discharge the patient with [place] 07/3251 tablet every 4 hours for severe pain a total of 10 tablets were prescribed. The patient felt ready to be discharged and was medically cleared to be discharged on 10/01/2025 The patient was seen and evaluated on day of discharge. Time spent on discharge 35 minutes *Problems/Diagnosis: (1) Mastitis of left breast unrelated to or Status: Acute Total Time Spent on D/C: > 30 Minutes Date of Service: Oct 01, 2025 Billing Provider: MARIANA SEBASTIAN DO Common Visit Codes: [id number] DISCH DAY >30min MARIANA SEBASTIAN DO Oct 01, 2025 19:53
== END 2025-10-01 14:25 | disposition home or self-care (01) | DRG 872 ==
LOC: ER 10:32 → ED HOLD 16:01 → SUR 3N 09-29 05:19
PROVIDERS: ADMIT Family Medicine; ATTEND Family Medicine
DX: A41.9 Sepsis, unspecified organism (principal); E78.5 Hyperlipidemia, unspecified; N61.0 Mastitis without abscess; F20.9 Schizophrenia, unspecified; F17.210 Nicotine dependence, cigarettes, uncomplicated; L30.4 Erythema intertrigo; F41.9 Anxiety disorder, unspecified; Z88.6 Allergy status to analgesic agent; Z79.899 Other long term (current) drug therapy
CPT/HCPCS: 36415; 71045; 80048; 80053; 80202; 81001; 81025; 83605; 83735; 84145; 85025; 87040; 87081; 93005; 96365; 96375; 99285; A6258; A6449; G0378; J0696; J1200; J1450; J1650; J2543; J3373; J3374; J7030; J7040